=== PATIENT | female | born 1990 | race Caucasian/White ===

== ENCOUNTER 2016-11-21 17:01 | Emergency (ER) | payer OTHER ==
[2016-11-21 17:47] VITALS: RESP 18
[2016-11-21] MEDS ORDERED: SODIUM CHLORIDE 0.9% 1,000 ML IV STA (19:07)
--- NOTE | 2016-11-21 19:32 | ED ---
Female Urogenital HPI - General Chief complaint: Vaginal Bleeding Stated complaint: bleeding, 6 weeks preg Time Seen by Provider: 11/21/16 19:06 Source: patient, RN notes reviewed Mode of arrival: ambulatory Limitations: no limitations - History of Present Illness Initial comments: 26 yo female presents to the ER with cc of vaginal bleeding in . Patient states she is about 5 weeks . Patient states she noticed some light spotting today. Patient states she is a . Patient states she was confirmed by the health clinic. Patient states that she has not had any abdominal pain with this. Patient denies ultrasound in this . Patient denies any Lesions in her previous . Patient stated his light spotting. Patient states is brown in color no bright blood clot. Patient states she was concerned so she thought that she should be evaluated. Patient denies any recent fever, chills, shortness of breath, chest pain, back pain, abdominal pain, nausea vomiting, numbness or tingling, dysuria or hematuria, constipation or diarrhea, headaches or visual changes, or any other current symptoms. Last Menstrual Period: 10/13/16 - Related Data Home Medications Medication Instructions Recorded Confirmed Dtp-Itmd-Fkmto Acid 1 tab PO RT-DAILY 03/31/16 11/21/16 [-U Capsule] Allergies Allergy/AdvReac Type Severity Reaction Status Date / Time No Known Allergies Allergy Verified 11/21/16 17:44 Review of Systems ROS Statement: Those systems with pertinent positive or pertinent negative responses have been documented in the HPI. ROS Other: All systems not noted in ROS Statement are negative. Past Medical History Additional Past Medical History / Comment(s): Positive HSV Type 2 History of Any Multi-Drug Resistant Organisms: None Reported Additional Past Surgical History / Comment(s): Tubes in ears Past Anesthesia/Blood Transfusion Reactions: No Reported Reaction Past Psychological History: No Psychological Hx Reported Smoking Status: Current every day smoker Past Alcohol Use History: None Reported Past Drug Use History: None Reported - Past Family History Mother Family Medical History: Cancer General Exam Limitations: no limitations General appearance: alert, in no apparent distress Eye exam: Present: normal appearance, PERRL, EOMI. Absent: scleral icterus, conjunctival injection, periorbital swelling ENT exam: Present: normal exam, mucous membranes moist Neck exam: Present: normal inspection. Absent: tenderness, meningismus, lymphadenopathy Respiratory exam: Present: normal lung sounds bilaterally. Absent: respiratory distress, wheezes, rales, rhonchi, stridor Cardiovascular Exam: Present: regular rate, normal rhythm, normal heart sounds. Absent: systolic murmur, diastolic murmur, rubs, gallop, clicks GI/Abdominal exam: Present: soft, normal bowel sounds. Absent: distended, tenderness, guarding, rebound, rigid External exam: Present: normal external exam Speculum exam: Present: vaginal bleeding (Minimal, brown), other (Cervical os closed) By manual exam: Present: normal by manual exam Extremities exam: Present: normal inspection, full ROM, normal capillary refill. Absent: tenderness, pedal edema, joint swelling, calf tenderness Back exam: Present: normal inspection Neurological exam: Present: alert, oriented X3, CN II-XII intact. Absent: motor sensory deficit Psychiatric exam: Present: normal affect, normal mood Skin exam: Present: warm, dry, intact, normal color. Absent: rash Course Vital Signs 11/21/16 17:44 Temperature 97.9 F Pulse Rate 83 Respiratory 18 Rate Blood Pressure 117/73 O2 Sat by Pulse 97 Oximetry Medical Decision Making - Medical Decision Making 26-year-old female presents emergency department with a chief complaint of vaginal bleeding in . At this time patient's pelvic exam does show some light brown spotting. It isn't patient undergo an ultrasound as well as blood work. This time these were reviewed. This and there does appear to be a live IUP. This time we did discuss follow-up with PCP and HYPERBARIC NURSE and return parameters. Patient stated that she understood all cushions were answered. They will be discharged home. - Lab Data Result diagrams: 11/21/16 19:30 11/21/16 19:30 Lab Results 11/21/16 11/21/16 11/21/16 Range/Units 19:30 19:30 19:30 WBC 4.7 (3.8-10.6) k/uL RBC 4.91 (3.80-5.40) m/uL Hgb 13.9 (11.4-16.0) gm/dL Hct 43.0 (34.0-46.0) % MCV 87.5 (80.0-100.0) fL MCH 28.4 (25.0-35.0) pg MCHC 32.4 (31.0-37.0) g/dL RDW 12.0 (11.5-15.5) % Plt Count 125 L (150-450) k/uL Neutrophils % 50 % Lymphocytes % 32 % Monocytes % 9 % Eosinophils % 6 % Basophils % 1 % Neutrophils # 2.3 (1.3-7.7) k/uL Lymphocytes # 1.5 (1.0-4.8) k/uL Monocytes # 0.4 (0-1.0) k/uL Eosinophils # 0.3 (0-0.7) k/uL Basophils # 0.1 (0-0.2) k/uL Sodium 141 (137-145) mmol/L Potassium 4.0 (3.5-5.1) mmol/L Chloride 102 (98-107) mmol/L Carbon Dioxide 27 (22-30) mmol/L Anion Gap 12 mmol/L BUN 13 (7-17) mg/dL Creatinine 0.72 (0.52-1.04) mg/dL Est GFR (MDRD) Af Amer >60 (>60 ml/min/1.73 sqM) Est GFR (MDRD) Non-Af >60 (>60 ml/min/1.73 sqM) Glucose 80 (74-99) mg/dL Calcium 9.7 (8.4-10.2) mg/dL Total Bilirubin 0.5 (0.2-1.3) mg/dL AST 55 H (14-36) U/L ALT 124 H (9-52) U/L Alkaline Phosphatase 94 (38-126) U/L Total Protein 7.9 (6.3-8.2) g/dL Albumin 4.6 (3.5-5.0) g/dL Urine Color Urine Appearance (Clear) Urine pH (5.0-8.0) Ur Specific [place] (1.001-1.035) Urine Protein (Negative) Urine Glucose (UA) (Negative) Urine Ketones (Negative) Urine Blood (Negative) Urine Nitrate (Negative) Urine Bilirubin (Negative) Urine Urobilinogen (<2.0) mg/dL Ur Leukocyte Esterase (Negative) Urine RBC (0-5) /hpf Urine WBC (0-5) /hpf Ur Squamous Epith Cells (0-4) /hpf Urine Bacteria (None) /hpf Urine Mucus (None) /hpf Urine HCG, Qual (Not Detectd) Blood Type B Positive Blood Type Recheck No 11/21/16 11/21/16 Range/Units 19:30 19:30 WBC (3.8-10.6) k/uL RBC (3.80-5.40) m/uL Hgb (11.4-16.0) gm/dL Hct (34.0-46.0) % MCV (80.0-100.0) fL MCH (25.0-35.0) pg MCHC (31.0-37.0) g/dL RDW (11.5-15.5) % Plt Count (150-450) k/uL Neutrophils % % Lymphocytes % % Monocytes % % Eosinophils % % Basophils % % Neutrophils # (1.3-7.7) k/uL Lymphocytes # (1.0-4.8) k/uL Monocytes # (0-1.0) k/uL Eosinophils # (0-0.7) k/uL Basophils # (0-0.2) k/uL Sodium (137-145) mmol/L Potassium (3.5-5.1) mmol/L Chloride (98-107) mmol/L Carbon Dioxide (22-30) mmol/L Anion Gap mmol/L BUN (7-17) mg/dL Creatinine (0.52-1.04) mg/dL Est GFR (MDRD) Af Amer (>60 ml/min/1.73 sqM) Est GFR (MDRD) Non-Af (>60 ml/min/1.73 sqM) Glucose (74-99) mg/dL Calcium (8.4-10.2) mg/dL Total Bilirubin (0.2-1.3) mg/dL AST (14-36) U/L ALT (9-52) U/L Alkaline Phosphatase (38-126) U/L Total Protein (6.3-8.2) g/dL Albumin (3.5-5.0) g/dL Urine Color Yellow Urine Appearance Cloudy H (Clear) Urine pH 6.5 (5.0-8.0) Ur Specific [place] 1.019 (1.001-1.035) Urine Protein Negative (Negative) Urine Glucose (UA) Negative (Negative) Urine Ketones Negative (Negative) Urine Blood Small H (Negative) Urine Nitrate Negative (Negative) Urine Bilirubin Negative (Negative) Urine Urobilinogen <2.0 (<2.0) mg/dL Ur Leukocyte Esterase Negative (Negative) Urine RBC 1 (0-5) /hpf Urine WBC 2 (0-5) /hpf Ur Squamous Epith Cells 6 H (0-4) /hpf Urine Bacteria Rare H (None) /hpf Urine Mucus Few H (None) /hpf Urine HCG, Qual Detected (Not Detectd) Blood Type Blood Type Recheck - Radiology Data Radiology results: report reviewed, image reviewed Disposition Clinical Impression: Threatened miscarriage Disposition: TRANSFER TO PSYCH HOSP/UNIT Condition: Stable Instructions: Threatened Miscarriage (ED) Additional Instructions: Please use medication as discussed. Please follow up with family doctor if symptoms have not improved over the next two days. Please return to the emergency room if your symptoms increase or worsen or for any other concerns. Referrals: Beto Phelan MD [STAFF PHYSICIAN] - 1-2 days Time of Disposition: 20:23
[2016-11-21 19:46] LABS: Basophils # (A) 0.1 k/uL (0-0.2); Basophils % (A) 1 %; CHCM 34.4; Eosinophils # (A) 0.3 k/uL (0-0.7); Eosinophils % (A) 6 %; HDW 2.43; HGB 13.9 gm/dL (11.4-16.0); Luc % (Auto) 2; Lymphocytes # (A) 1.5 k/uL (1.0-4.8); Lymphocytes % (A) 32 %; MCH 28.4 pg (25.0-35.0); MCHC 32.4 g/dL (31.0-37.0); MCV 87.5 fL (80.0-100.0); Mean Platelet Volume 9.2; Monocytes # (A) 0.4 k/uL (0-1.0); Monocytes % (A) 9 %; Neutrophils # (A) 2.3 k/uL (1.3-7.7); Neutrophils % (A) 50 %; RBC 4.91 m/uL (3.80-5.40); WBC 4.7 k/uL (3.8-10.6); WBC (Perox) 4.74
[2016-11-21 19:48] LABS: Appearance,Urine Cloudy (Clear); Bacteria,Urine Rare /hpf; Bilirubin,Urine Negative (Negative); Glucose,Urine (UA) Negative (Negative); Ketones,Urine Negative (Negative); Leukocyte Esterase,Urine Negative (Negative); Mucus,Urine Few /hpf; Nitrite,Urine Negative (Negative); PH, Urine 6.5 (5.0-8.0); Particle Count 4589; Protein,Urine Negative (Negative); RBC,Urine 1 /hpf (0-5); Specific Gravity,Urine 1.019 (1.001-1.035); Squamous Epithelial Cell,Urine 6 /hpf (0-4); UA Billing (MACRO vs. MICRO) MICRO; Urobilinogen,Urine <2.0 mg/dL (<2.0); WBC,Urine 2 /hpf (0-5)
[2016-11-21 19:55] LABS: ALT 124 U/L (9-52); AST 55 U/L (14-36); Alkaline Phosphatase 94 U/L (38-126); Anion Gap 12 mmol/L; Blood Urea Nitrogen 13 mg/dL (7-17); Calcium 9.7 mg/dL (8.4-10.2); Carbon Dioxide 27 mmol/L (22-30); Chloride 102 mmol/L (98-107); Glucose 80 mg/dL (74-99); Non-African American GFR(MDRD) >60 (>60 ml/min/1.73 sqM); Sodium 141 mmol/L (137-145); Total Bilirubin 0.5 mg/dL (0.2-1.3); Total Protein 7.9 g/dL (6.3-8.2)
--- NOTE | 2016-11-21 20:22 | US ---
EXAMINATION TYPE: US OB <= 14 wk fetus DATE OF EXAM: 11/21/2016 8:05 PM COMPARISON: NONE CLINICAL HISTORY: bleeding- dark, no pain. EXAM PERFORMED: Transabdominal (TA) EXAM MEASUREMENTS: GESTATIONAL AGE / DATING Dates by LMP: ( 5 weeks/4 days) EDC: 07/20/2017 Dates by Current Scan: (5 weeks/5 days) EDC: 07/19/2017 MATERNAL ANATOMY Uterus: 7.1 x 6.5 x 4.0 cm Right Ovary: 3.9 x 1.7 x 2.0 cm Left Ovary: 4.3 x 3.5 x 4.0 cm Post CDS / Adnexa: no free fluid Presence of cyst: Left ovary= cyst with debris = 3.7 x 3.5 x 3.0 cm GESTATION / SURVEY CRL: 0.2 cm (5 weeks/5 days) MSD: not measured Yolk Sac (normal less than 6mm): 2.1 mm Heart Rate: 104 bpm Rhythm: Normal, low IUP: Viable IUP Date of LMP: 10/13/2016, Beta HcG (if available): not available IMPRESSION: Live IUP seen measuring 5 weeks 5 days. Low heart rate, could be due to early gestatio nal age. Left ovarian cyst.
[2016-11-21 20:26] LABS: HCG,Quantitative Serum 25475.7 mIU/mL
[2016-11-21 20:32] VITALS: BP 122/65; PULSE 75; TEMP 98
== END 2016-11-21 20:33 ==
LOC: EC 17:01
DX: O20.0 Threatened abortion (principal); O99.331 Smoking (tobacco) complicating pregnancy, first trimester; F17.200 Nicotine dependence, unspecified, uncomplicated; Z3A.01 Less than 8 weeks gestation of pregnancy
CPT/HCPCS: 36415; 76801; 80053; 81001; 81025; 84702; 85025; 86900; 86901; 87086; 99284

== ENCOUNTER 2016-12-20 08:33 | Emergency (ER) | payer OTHER ==
[2016-12-20 08:45] VITALS: RESP 16
[2016-12-20] MEDS ORDERED: SODIUM CHLORIDE 0.9% 1,000 ML IV STA (09:09)
[2016-12-20 09:38] LABS: Appearance,Urine Clear (Clear); Bacteria,Urine Rare /hpf; Bilirubin,Urine Negative (Negative); Glucose,Urine (UA) Negative (Negative); Ketones,Urine Negative (Negative); Leukocyte Esterase,Urine Negative (Negative); Mucus,Urine Occasional /hpf; Nitrite,Urine Negative (Negative); Particle Count 3068; Protein,Urine Negative (Negative); RBC,Urine 20 /hpf (0-5); Specific Gravity,Urine 1.016 (1.001-1.035); Squamous Epithelial Cell,Urine 3 /hpf (0-4); UA Billing (MACRO vs. MICRO) MICRO; Urobilinogen,Urine <2.0 mg/dL (<2.0); WBC,Urine 1 /hpf (0-5)
[2016-12-20 09:44] LABS: Basophils % (A) 1 %; CH 30.5; CHCM 34.9; Eosinophils # (A) 0.3 k/uL (0-0.7); Eosinophils % (A) 5 %; HCT 36.9 % (34.0-46.0); HDW 2.41; HGB 12.7 gm/dL (11.4-16.0); Luc # (Auto) 0.05; Luc % (Auto) 1; Lymphocytes % (A) 15 %; MCH 30.2 pg (25.0-35.0); MCHC 34.4 g/dL (31.0-37.0); MCV 87.9 fL (80.0-100.0); Mean Platelet Volume 9.1; Monocytes # (A) 0.3 k/uL (0-1.0); Monocytes % (A) 5 %; Neutrophils % (A) 74 %; RDW 12.5 % (11.5-15.5); WBC 6.7 k/uL (3.8-10.6); WBC (Perox) 6.74
--- NOTE | 2016-12-20 09:48 | ED ---
General Adult HPI - General Chief complaint: Abdominal Pain Stated complaint: side pain, 9 wks preg Time Seen by Provider: 12/20/16 09:06 Source: patient, RN notes reviewed Mode of arrival: ambulatory Limitations: no limitations - History of Present Illness Initial comments: Patient we [id number] female who is approximately 9 weeks , who presents emergency room today with chief complaint of right-sided abdominal pain. Admits the pain started today. Does admit that she had some bleeding yesterday. Denies any vaginal bleeding today. Denies any discharge. States this is second . States she has not had an appointment with her OB yet. Patient admits to nausea vomiting this morning. Patient denies any other complaints or symptoms. Patient denies any recent fever, chills, shortness of breath, chest pain, numbness or tingling, dysuria or hematuria, constipation or diarrhea, headaches or visual changes, or any other complaints. - Related Data Home Medications Medication Instructions Recorded Confirmed Hth-Ewld-Dhmek Acid 1 cap PO HS 03/31/16 12/20/16 [-U Capsule] Allergies Allergy/AdvReac Type Severity Reaction Status Date / Time No Known Allergies Allergy Verified 12/20/16 08:50 Review of Systems ROS Statement: Those systems with pertinent positive or pertinent negative responses have been documented in the HPI. ROS Other: All systems not noted in ROS Statement are negative. Past Medical History Additional Past Medical History / Comment(s): Positive HSV Type 2 History of Any Multi-Drug Resistant Organisms: None Reported Additional Past Surgical History / Comment(s): Tubes in ears Past Anesthesia/Blood Transfusion Reactions: No Reported Reaction Past Psychological History: No Psychological Hx Reported Smoking Status: Former smoker Past Alcohol Use History: None Reported Past Drug Use History: None Reported - Past Family History Mother Family Medical History: Cancer General Exam - General Exam Comments Initial Comments: General: The patient is awake and alert, in no distress, and does not appear acutely ill. Eye: Pupils are equal, round and reactive to light, extra-ocular movements are intact. No nystagmus. There is normal conjunctiva bilaterally. No signs of icterus. Ears, nose, mouth and throat: There are moist mucous membranes and no oral lesions. Neck: The neck is supple, there is no tenderness or JVD. Cardiovascular: There is a regular rate and rhythm. No murmur, rub or gallop is appreciated. Respiratory: Lungs are clear to auscultation, respirations are non-labored, breath sounds are equal. No wheezes, stridor, rales, or rhonchi. Gastrointestinal: Soft, non-distended, non-tender abdomen without masses or organomegaly noted. There is no rebound or guarding present. No CVA tenderness. Bowel sounds are unremarkable. Musculoskeletal: Normal ROM, no tenderness. Strength 5/5. Sensation intact. Pulses equal bilaterally 2+. Neurological: A&O x 3. CN II-XII intact, There are no obvious motor or sensory deficits. Coordination appears grossly intact. Speech is normal. Skin: Skin is warm and dry and no rashes or lesions are noted. Psychiatric: Cooperative, appropriate mood & affect, normal judgment. Limitations: no limitations Course Vital Signs 12/20/16 12/20/16 08:43 10:36 Temperature 97.9 F 98.0 F Pulse Rate 92 78 Respiratory 16 16 Rate Blood Pressure 114/62 115/59 O2 Sat by Pulse 98 100 Oximetry Medical Decision Making - Medical Decision Making Patient's ultrasound reviewed and shows seen IUP measuring 10 weeks 3 days. Heart rate 167 bpm. Evidence for a cystic structure in the left ovary. Probable corpus luteum. Small subchorionic bleed the left of gestational sac. Beta hCG still pending at this time. Patient is B+. Patient's remaining labs unremarkable. Patient will be discharged home advised follow-up the [facility] [employer] over the next 2 days. - Lab Data Result diagrams: 12/20/16 09:30 12/20/16 09:30 Lab Results 12/20/16 12/20/16 12/20/16 Range/Units 09:00 09:30 09:30 WBC 6.7 (3.8-10.6) k/uL RBC 4.20 (3.80-5.40) m/uL Hgb 12.7 (11.4-16.0) gm/dL Hct 36.9 (34.0-46.0) % MCV 87.9 (80.0-100.0) fL MCH 30.2 (25.0-35.0) pg MCHC 34.4 (31.0-37.0) g/dL RDW 12.5 (11.5-15.5) % Plt Count 128 L (150-450) k/uL Neutrophils % 74 % Lymphocytes % 15 % Monocytes % 5 % Eosinophils % 5 % Basophils % 1 % Neutrophils # 5.0 (1.3-7.7) k/uL Lymphocytes # 1.0 (1.0-4.8) k/uL Monocytes # 0.3 (0-1.0) k/uL Eosinophils # 0.3 (0-0.7) k/uL Basophils # 0.0 (0-0.2) k/uL Sodium (137-145) mmol/L Potassium (3.5-5.1) mmol/L Chloride (98-107) mmol/L Carbon Dioxide (22-30) mmol/L Anion Gap mmol/L BUN (7-17) mg/dL Creatinine (0.52-1.04) mg/dL Est GFR (MDRD) Af Amer (>60 ml/min/1.73 sqM) Est GFR (MDRD) Non-Af (>60 ml/min/1.73 sqM) Glucose (74-99) mg/dL Calcium (8.4-10.2) mg/dL Total Bilirubin (0.2-1.3) mg/dL AST (14-36) U/L ALT (9-52) U/L Alkaline Phosphatase (38-126) U/L Total Protein (6.3-8.2) g/dL Albumin (3.5-5.0) g/dL Urine Color Yellow Urine Appearance Clear (Clear) Urine pH 6.0 (5.0-8.0) Ur Specific [place] 1.016 (1.001-1.035) Urine Protein Negative (Negative) Urine Glucose (UA) Negative (Negative) Urine Ketones Negative (Negative) Urine Blood Small H (Negative) Urine Nitrate Negative (Negative) Urine Bilirubin Negative (Negative) Urine Urobilinogen <2.0 (<2.0) mg/dL Ur Leukocyte Esterase Negative (Negative) Urine RBC 20 H (0-5) /hpf Urine WBC 1 (0-5) /hpf Ur Squamous Epith Cells 3 (0-4) /hpf Urine Bacteria Rare H (None) /hpf Hyaline Casts 1 (0-2) /lpf Urine Mucus Occasional H (None) /hpf Blood Type B Positive Blood Type Recheck No 12/20/16 Range/Units 09:30 WBC (3.8-10.6) k/uL RBC (3.80-5.40) m/uL Hgb (11.4-16.0) gm/dL Hct (34.0-46.0) % MCV (80.0-100.0) fL MCH (25.0-35.0) pg MCHC (31.0-37.0) g/dL RDW (11.5-15.5) % Plt Count (150-450) k/uL Neutrophils % % Lymphocytes % % Monocytes % % Eosinophils % % Basophils % % Neutrophils # (1.3-7.7) k/uL Lymphocytes # (1.0-4.8) k/uL Monocytes # (0-1.0) k/uL Eosinophils # (0-0.7) k/uL Basophils # (0-0.2) k/uL Sodium 140 (137-145) mmol/L Potassium 4.0 (3.5-5.1) mmol/L Chloride 104 (98-107) mmol/L Carbon Dioxide 26 (22-30) mmol/L Anion Gap 10 mmol/L BUN 9 (7-17) mg/dL Creatinine 0.53 (0.52-1.04) mg/dL Est GFR (MDRD) Af Amer >60 (>60 ml/min/1.73 sqM) Est GFR (MDRD) Non-Af >60 (>60 ml/min/1.73 sqM) Glucose 79 (74-99) mg/dL Calcium 9.2 (8.4-10.2) mg/dL Total Bilirubin 0.6 (0.2-1.3) mg/dL AST 21 (14-36) U/L ALT 56 H (9-52) U/L Alkaline Phosphatase 67 (38-126) U/L Total Protein 7.3 (6.3-8.2) g/dL Albumin 4.1 (3.5-5.0) g/dL Urine Color Urine Appearance (Clear) Urine pH (5.0-8.0) Ur Specific [place] (1.001-1.035) Urine Protein (Negative) Urine Glucose (UA) (Negative) Urine Ketones (Negative) Urine Blood (Negative) Urine Nitrate (Negative) Urine Bilirubin (Negative) Urine Urobilinogen (<2.0) mg/dL Ur Leukocyte Esterase (Negative) Urine RBC (0-5) /hpf Urine WBC (0-5) /hpf Ur Squamous Epith Cells (0-4) /hpf Urine Bacteria (None) /hpf Hyaline Casts (0-2) /lpf Urine Mucus (None) /hpf Blood Type Blood Type Recheck Disposition Clinical Impression: Threatened Disposition: HOME SELF-CARE Condition: Good Instructions: Threatened Miscarriage (ED) Additional Instructions: Please use medication as discussed. Please follow-up with family doctor in the next 2 days of symptoms have not improved. Please return to emergency room if the symptoms increase or worsen or for any other concerns. Referrals: None,Stated [Primary Care Provider] - 1-2 days Time of Disposition: 11:09
[2016-12-20 09:54] LABS: ALT 56 U/L (9-52); AST 21 U/L (14-36); Alkaline Phosphatase 67 U/L (38-126); Anion Gap 10 mmol/L; Blood Urea Nitrogen 9 mg/dL (7-17); Calcium 9.2 mg/dL (8.4-10.2); Carbon Dioxide 26 mmol/L (22-30); Chloride 104 mmol/L (98-107); Glucose 79 mg/dL (74-99); Non-African American GFR(MDRD) >60 (>60 ml/min/1.73 sqM); Sodium 140 mmol/L (137-145); Total Bilirubin 0.6 mg/dL (0.2-1.3); Total Protein 7.3 g/dL (6.3-8.2)
[2016-12-20 10:38] VITALS: BP 115/59; PULSE 78; TEMP 98
[2016-12-20 11:09] LABS: HCG,Quantitative Serum 88399.7 mIU/mL
--- NOTE | 2016-12-20 11:09 | US ---
EXAMINATION TYPE: US OB <= 14 wk fetus DATE OF EXAM: 12/20/2016 10:29 AM COMPARISON: NONE CLINICAL HISTORY: Pain. Right pelvic pain, spotting yesterday EXAM PERFORMED: Transabdominal (TA) EXAM MEASUREMENTS: GESTATIONAL AGE / DATING Physician Established: not established Dates by LMP: (9 weeks/5 days) EDC: 07/20/17 Dates by First Scan: (9 weeks/6 days) EDC: 07/19/17 Dates by Current Scan for: (10 weeks/3 days) EDC: 07/15/17 MATERNAL ANATOMY Uterus: 9.8 x 6.3 x 8.8cm Right Ovary: 3.0 x 1.4 x 1.6cm Left Ovary: 4.5 x 4.0 x 6.1cm Post CDS / Adnexa: appears wnl Presence of free fluid: no Presence of corpus luteal cyst: cystic area left ovary = 3.6 x 3.3 x 3.7cm Presence of subchorionic bleed: yes, left of gestational sac = 1.4cm GESTATION / SURVEY CRL: 3.5cm (10 weeks/3 days) Yolk Sac (normal less than 6mm): 0.3cm Heart Rate: 167 bpm Rhythm: Normal IUP: Viable IUP Nuchal Translucency 10-14wks (normal less than 3mm): 0.1cm Date of LMP: 10/13/16 Beta HcG (if available): unavailable FINDINGS: Single viable IUP 10wks/3days with DIEGO of 07/15/17. Cystic area left ovary, probable corpus luteum cyst. Small subchorionic bleed left of gestational sac IMPRESSION: Single viable IUP 10wks/3days with DIEGO of 07/15/17. There is a small subchorionic hemorrhage.
== END 2016-12-20 11:30 | disposition home or self-care (01) ==
LOC: EC 08:33
DX: O20.0 Threatened abortion (principal); Z3A.10 10 weeks gestation of pregnancy; Z87.891 Personal history of nicotine dependence
CPT/HCPCS: 36415; 76801; 76813; 80053; 81001; 84702; 85025; 86900; 86901; 87086; 96360; 99284

== ENCOUNTER 2017-01-10 11:52 | Emergency (ER) | payer OTHER ==
--- NOTE | 2017-01-10 13:30 | ED ---
ENT HPI - General Chief complaint: ENT Stated complaint: sinus and ear pain Time Seen by Provider: 01/10/17 12:37 Source: patient Mode of arrival: ambulatory Limitations: no limitations - History of Present Illness Initial comments: She is , complaining about facial pain, sore throat, earache she feels feverish though in the ER she is afebrile also complaining about some discomfort in the gums and the teeth as well she feels she has required quite severe sinus infection. Denies any headaches no neck stiffness no chest pain no abdominal pain no frequency urgency dysuria - Related Data Home Medications Medication Instructions Recorded Confirmed Jek-Wzcj-Klzkp Acid 1 cap PO HS 03/31/16 12/20/16 [-U Capsule] Pseudoephedrine [Sudafed] 30 mg PO Q4H 01/10/17 01/10/17 Previous Rx's Medication Instructions Recorded Amoxicillin 500 mg PO Q8H #30 capsule 01/10/17 Allergies Allergy/AdvReac Type Severity Reaction Status Date / Time No Known Allergies Allergy Verified 12/20/16 08:50 Review of Systems ROS Statement: Those systems with pertinent positive or pertinent negative responses have been documented in the HPI. ROS Other: All systems not noted in ROS Statement are negative. Past Medical History Additional Past Medical History / Comment(s): Positive HSV Type 2 History of Any Multi-Drug Resistant Organisms: None Reported Additional Past Surgical History / Comment(s): Tubes in ears Past Anesthesia/Blood Transfusion Reactions: No Reported Reaction Past Psychological History: No Psychological Hx Reported Smoking Status: Former smoker Past Alcohol Use History: None Reported Past Drug Use History: None Reported - Past Family History Mother Family Medical History: Cancer General Exam - General Exam Comments Initial Comments: General: The patient is awake and alert, in no distress, and does not appear acutely ill. Skin: Skin is warm and dry and no rashes or lesions are noted. Eye: Pupils are equal, round and reactive to light, extra-ocular movements are intact; there is normal conjunctiva bilaterally. Ears, nose, mouth and throat: Very tender to palpate over maxillary sinuses and ethmoid sinuses, oropharynx is unremarkable, no neck stiffness at all him a both tympanic membranes are mildly erythematous and some erythema noticed in the ear canals as well Neck: The neck is supple, there is no tenderness Cardiovascular: There is a regular rate and rhythm. No murmur, rub or gallop is appreciated. Respiratory: To auscultation bilateral, no wheezing no rhonchi no distress respiratory buck noticed Gastrointestinal: Soft, non-distended, non-tender abdomen without masses or organomegaly noted. There is no rebound or guarding present. Bowel sounds are unremarkable. Back: There is no tenderness to palpation in the midline. There is no obvious deformity. Musculoskeletal: Normal ROM, no tenderness, There is no pedal edema. There is no calf tenderness or swelling. No cords were appreciated. Neurological: CN II-XII intact, Cranial nerves III through XII are intact. There are no obvious motor or sensory deficits. Coordination appears grossly intact. Speech is normal. Psychiatric: Cooperative, appropriate mood & affect, normal judgment. Limitations: no limitations Course Vital Signs 01/10/17 12:08 Temperature 98.5 F Pulse Rate 95 Respiratory 20 Rate Blood Pressure 113/66 O2 Sat by Pulse 99 Oximetry Disposition Clinical Impression: Sinusitis, Otitis media Disposition: HOME SELF-CARE Instructions: Earache (ED) Additional Instructions: He does not have a family doctor she was advised to come back to ER if symptoms get worse, she agrees with the Prescriptions: Amoxicillin 500 mg PO Q8H #30 capsule
[2017-01-10 14:02] VITALS: BP 119/70; PULSE 80; RESP 18; TEMP 98
== END 2017-01-10 14:02 | disposition home or self-care (01) ==
LOC: EC 11:52
DX: H66.90 Otitis media, unspecified, unspecified ear (principal); J32.2 Chronic ethmoidal sinusitis; J32.0 Chronic maxillary sinusitis; Z87.891 Personal history of nicotine dependence; Z79.899 Other long term (current) drug therapy
CPT/HCPCS: 99282

== ENCOUNTER 2017-07-09 03:29 | Outpatient (CLI) | payer OTHER ==
[2017-07-09 05:02] VITALS: BP 125/79; PULSE 81; RESP 16; TEMP 96.8
--- NOTE | 2017-08-31 11:45 | P.MSEPDOC ---
Presenting Problems - Arrival Data Date of Arrival on Unit: 07/09/17 Time of Arrival on Unit: 03:30 Mode of Transport: Wheelchair - Complaint OB-Reason for Admission/Chief Complaint: Possible Onset of Labor Comment: Contractions beginning about 0100 this morning Medical History - Information : 2 Para: 1 Term: 0 : 1 Abortions: Spontaneous or Elective: 0 Number of Living Children: 1 - Gestational Age Gestational Age by DIEGO (wks/days): 38 Weeks and 3 Days - History Complications: Smoker Sexually Transmitted Diseases: HSV Review of Systems - Review of Systems Constitutional: No problems Breast: No problems ENT: No problems Cardiovascular: No problems Respiratory: No problems Gastrointestinal: No problems Genitourinary: No problems Musculoskeletal: No problems Neurological: No problems Skin: No problems Vital Signs - Temperature Temperature: 96.8 F Temperature Source: Temporal Artery Scan - Pulse Pulse Oximetery Pulse Rate: 81 Pulse Assessment Method: Pulse Oximetry - Respirations Respiratory Rate: 16 Oxygen Delivery Method: Room Air O2 Sat by Pulse Oximetry: 99 - Blood Pressure Right Arm Blood Pressure: 125/79 Blood Pressure Mean: 94 Blood Pressure Source: Automatic Cuff Medical Screen Scoring (Pre) - Cervical Exam Dilation: 1-3 cm = 1 Effacement: More than 50% = 2 Membranes: Intact - Uterine Contractions Frequency: > or = 36 weeks =2 Duration: > 40 seconds = 2 Intensity: N/A - Maternal Vital Signs Maternal Temperature: N/A Maternal Blood Pressure: N/A Signs of Preeclampsia: N/A Maternal Respirations: N/A - Maternal Trauma Maternal Trauma: N/A - Assessment Baseline FHR: 135 Heart Rate - NICHD Category: Category I (Normal) = 0 NST: Reactive Position: N/A Station: N/A - Total Score Total Score (Pre): 7 - Level of Risk Level of Risk: Medium (6-9) Physician Notification (Pre) - Physician Notified Physician Notified Date: 07/09/17 Physician Notified Time: 04:43 Physician/Practitioner Notifed:: Su Spoke With: Su New Order Received: Yes (discharge orders) - Notification Comment Comment: Patient following up with primary OB, Dr. Zepeda, at [facility]. Disposition - Disposition OB Disposition: Discharge to home Discharge Date: 07/09/17 Discharge Time: 04:50 I agree with the RN Medical Screening Exam: Yes Risk & Benefit of care provided described in d/c instruction: Yes Diagnosis: FALSE LABOR AT OR AFTER 37 COMPLETED WEEKS OF GESTATION
== END 2017-07-09 04:50 | disposition home or self-care (01) ==
LOC: FBPOP 03:29
PROVIDERS: ATTEND Obstetrics & Gynecology Obstetrics
DX: O47.1 False labor at or after 37 completed weeks of gestation (principal); Z3A.38 38 weeks gestation of pregnancy
CPT/HCPCS: 59025; G0463; 99213

== ENCOUNTER 2018-08-16 18:21 | Emergency (ER) | payer OTHER ==
[2018-08-16 18:50] VITALS: RESP 18
[2018-08-16] MEDS ORDERED: KETOROLAC 30 MG/ML 1 ML VIAL IVP STA (19:23)
[2018-08-16] MEDS ORDERED: SODIUM CHLORIDE 0.9% 1,000 ML IV ONE (19:23)
[2018-08-16] MEDS ORDERED: ONDANSETRON 4 MG/2 ML VIAL IVP STA (19:27)
--- NOTE | 2018-08-16 19:28 | ED ---
Female Urogenital HPI - General Chief complaint: Urogenital Stated complaint: UTI Time Seen by Provider: 08/16/18 19:00 Source: patient Mode of arrival: ambulatory Limitations: no limitations - History of Present Illness Initial comments: Patient is a 28-year-old female presenting for dysuria. On Saturday, she states that she was having some anal with urination as well as bilateral lower back pain and went to urgent care and diagnosed with urinary tract infection. She was started on Bactrim and Pyridium and states that the symptoms continue to worsen. She admits to subjective fevers and chills as well as 3 episodes of nausea and vomiting and worsening back pain. She denies any dysuria, chest pain , shortness of breath. - Related Data Previous Rx's Medication Instructions Recorded HYDROcodone/APAP 5-325MG [[place] 1 tab PO Q6HR PRN #12 tab 08/16/18 5-325] Allergies Allergy/AdvReac Type Severity Reaction Status Date / Time No Known Allergies Allergy Verified 08/16/18 18:50 Review of Systems ROS Statement: Those systems with pertinent positive or pertinent negative responses have been documented in the HPI. Constitutional: Negative for chills, fatigue and fever. HENT: Negative for congestion. Respiratory: Negative for chest tightness, shortness of breath and wheezing. Negative for cough Cardiovascular: Negative for chest pain and palpitations. Gastrointestinal: Negative for abdominal pain. Negative for abdominal distention , diarrhea, positive for bilateral flank pain and nausea and vomiting. Genitourinary: Positive for dysuria. Musculoskeletal: Negative for back pain, neck pain and neck stiffness. Skin: Negative for color change. Neurological: Negative for dizziness, speech difficulty, weakness and light- headedness. Psychiatric/Behavioral: Negative for agitation and confusion. Negative for anxiety ROS Other: All systems not noted in ROS Statement are negative. Past Medical History Additional Past Medical History / Comment(s): Positive HSV Type 2 History of Any Multi-Drug Resistant Organisms: None Reported Additional Past Surgical History / Comment(s): Tubes in ears Past Anesthesia/Blood Transfusion Reactions: No Reported Reaction Past Psychological History: No Psychological Hx Reported Smoking Status: Current every day smoker - Past Family History Mother Family Medical History: Cancer General Exam - General Exam Comments Initial Comments: Constitutional: Pt is oriented to person, place, and time. Pt appears well- developed and well-nourished. No distress. HENT: Head: Normocephalic and atraumatic. Eyes: EOM are normal. Neck: Normal range of motion. Neck supple. Cardiovascular: Tachycardia present, regular rhythm, S1 normal, S2 normal and normal heart sounds. Exam reveals no gallop and no friction rub. No murmur heard. Pulmonary/Chest: Effort normal and breath sounds normal. No tachypnea and no bradypnea. No respiratory distress. No wheezes or rales noted. Abdominal: Soft. Bowel sounds are normal. Pt exhibits no shifting dullness, no distension, no pulsatile liver, no fluid wave, no abdominal bruit and no ascites. There is no tenderness. There is no rigidity, no rebound, no guarding, no tenderness at McBurney's point and negative Harrison's sign. Musculoskeletal: Normal range of motion. Neurological: Pt is alert and oriented to person, place, and time. No cranial nerve deficit. Skin: Skin is warm and dry. No rash noted. Pt is not diaphoretic. No erythema. No pallor. Psychiatric: Pt has a normal mood and affect. Pt behavior is normal. Thought content normal. Limitations: no limitations Course Vital Signs 08/16/18 08/16/18 18:47 22:50 Temperature 97.6 F 98.0 F Pulse Rate 107 H 91 Respiratory 18 18 Rate Blood Pressure 113/70 116/59 O2 Sat by Pulse 97 98 Oximetry Medical Decision Making - Medical Decision Making Laboratory studies showed that there was no significant leukocytosis and a letter lites were relatively within normal limits. AST and ALT were mildly elevated and total bilirubin was measured at 1.7. Because of this, abdominal ultrasound was performed to evaluate the liver and gallbladder structure as well as evaluate the kidneys for what appeared to be a urinary tract infection based on urinalysis. Ultrasound showed splenomegaly with no overt gallbladder disease identified. There is also no renal abnormalities found on ultrasound. Patient was given analgesics and stated that the pain significantly improved. Patient was also given 1 g Rocephin and advised to continue her outpatient Bactrim. His explained that the etiology of the pinna megaly was unclear but that she should follow up with PCP in next 1-2 days and avoid strenuous physical contact contact. Patient was agreeable plan. - Lab Data Result diagrams: 08/16/18 19:40 08/16/18 19:40 Lab Results 08/16/18 08/16/18 08/16/18 Range/Units 19:40 19:40 19:40 WBC 11.4 H (3.8-10.6) k/uL RBC 5.02 (3.80-5.40) m/uL Hgb 14.7 (11.4-16.0) gm/dL Hct 44.7 (34.0-46.0) % MCV 89.2 (80.0-100.0) fL MCH 29.2 (25.0-35.0) pg MCHC 32.8 (31.0-37.0) g/dL RDW 12.3 (11.5-15.5) % Plt Count 143 L (150-450) k/uL Neutrophils % 89 % Lymphocytes % 5 % Monocytes % 5 % Eosinophils % 1 % Basophils % 0 % Neutrophils # 10.1 H (1.3-7.7) k/uL Lymphocytes # 0.5 L (1.0-4.8) k/uL Monocytes # 0.5 (0-1.0) k/uL Eosinophils # 0.1 (0-0.7) k/uL Basophils # 0.0 (0-0.2) k/uL Sodium 138 (137-145) mmol/L Potassium 4.1 (3.5-5.1) mmol/L Chloride 102 (98-107) mmol/L Carbon Dioxide 22 (22-30) mmol/L Anion Gap 14 mmol/L BUN 16 (7-17) mg/dL Creatinine 0.79 (0.52-1.04) mg/dL Est GFR (CKD-EPI)AfAm >90 (>60 ml/min/1.73 sqM) Est GFR (CKD-EPI)NonAf >90 (>60 ml/min/1.73 sqM) Glucose 88 (74-99) mg/dL Calcium 9.4 (8.4-10.2) mg/dL Total Bilirubin 1.7 H (0.2-1.3) mg/dL AST 44 H (14-36) U/L ALT 59 H (9-52) U/L Alkaline Phosphatase 119 (38-126) U/L Total Protein 8.1 (6.3-8.2) g/dL Albumin 4.5 (3.5-5.0) g/dL Urine Color Urine Appearance (Clear) Urine pH (5.0-8.0) Ur Specific [place] (1.001-1.035) Urine Protein (Negative) Urine Glucose (UA) (Negative) Urine Ketones (Negative) Urine Blood (Negative) Urine Nitrite (Negative) Urine Bilirubin (Negative) Urine Urobilinogen (<2.0) mg/dL Ur Leukocyte Esterase (Negative) Urine RBC (0-5) /hpf Urine WBC (0-5) /hpf Urine WBC Clumps (None) /hpf Urine Bacteria (None) /hpf Urine Mucus (None) /hpf Urine HCG, Qual Not Detected (Not Detectd) Heterophile Antibody (Negative) 08/16/18 08/16/18 Range/Units 19:40 19:40 WBC (3.8-10.6) k/uL RBC (3.80-5.40) m/uL Hgb (11.4-16.0) gm/dL Hct (34.0-46.0) % MCV (80.0-100.0) fL MCH (25.0-35.0) pg MCHC (31.0-37.0) g/dL RDW (11.5-15.5) % Plt Count (150-450) k/uL Neutrophils % % Lymphocytes % % Monocytes % % Eosinophils % % Basophils % % Neutrophils # (1.3-7.7) k/uL Lymphocytes # (1.0-4.8) k/uL Monocytes # (0-1.0) k/uL Eosinophils # (0-0.7) k/uL Basophils # (0-0.2) k/uL Sodium (137-145) mmol/L Potassium (3.5-5.1) mmol/L Chloride (98-107) mmol/L Carbon Dioxide (22-30) mmol/L Anion Gap mmol/L BUN (7-17) mg/dL Creatinine (0.52-1.04) mg/dL Est GFR (CKD-EPI)AfAm (>60 ml/min/1.73 sqM) Est GFR (CKD-EPI)NonAf (>60 ml/min/1.73 sqM) Glucose (74-99) mg/dL Calcium (8.4-10.2) mg/dL Total Bilirubin (0.2-1.3) mg/dL AST (14-36) U/L ALT (9-52) U/L Alkaline Phosphatase (38-126) U/L Total Protein (6.3-8.2) g/dL Albumin (3.5-5.0) g/dL Urine Color Dark Yellow Urine Appearance Turbid H (Clear) Urine pH 6.0 (5.0-8.0) Ur Specific [place] 1.017 (1.001-1.035) Urine Protein 2+ H (Negative) Urine Glucose (UA) Negative (Negative) Urine Ketones 1+ H (Negative) Urine Blood Moderate H (Negative) Urine Nitrite Positive H (Negative) Urine Bilirubin Negative (Negative) Urine Urobilinogen <2.0 (<2.0) mg/dL Ur Leukocyte Esterase Large H (Negative) Urine RBC 17 H (0-5) /hpf Urine WBC >182 H (0-5) /hpf Urine WBC Clumps Few H (None) /hpf Urine Bacteria Many H (None) /hpf Urine Mucus Many H (None) /hpf Urine HCG, Qual (Not Detectd) Heterophile Antibody Negative (Negative) Disposition Clinical Impression: Urinary tract infection, Splenomegaly Disposition: HOME SELF-CARE Condition: Good Instructions: Urinary Tract Infection in Women (ED) Prescriptions: HYDROcodone/APAP 5-325MG [[place] 5-325] 1 tab PO Q6HR PRN #12 tab PRN Reason: Pain Is patient prescribed a controlled substance at d/c from ED?: Yes Referrals: None,Stated [Primary Care Provider] - 1-2 days Time of Disposition: 22:42
[2018-08-16 19:56] LABS: Basophils % (A) 0 %; Eosinophils # (A) 0.1 k/uL (0-0.7); Eosinophils % (A) 1 %; HCT 44.7 % (34.0-46.0); HGB 14.7 gm/dL (11.4-16.0); Lymphocytes # (A) 0.5 k/uL (1.0-4.8); Lymphocytes % (A) 5 %; MCH 29.2 pg (25.0-35.0); MCHC 32.8 g/dL (31.0-37.0); MCV 89.2 fL (80.0-100.0); Mean Platelet Volume 8.5; Monocytes # (A) 0.5 k/uL (0-1.0); Monocytes % (A) 5 %; Neutrophils # (A) 10.1 k/uL (1.3-7.7); Neutrophils % (A) 89 %; Platelet Count 143 k/uL (150-450); RBC 5.02 m/uL (3.80-5.40); RDW 12.3 % (11.5-15.5); WBC 11.4 k/uL (3.8-10.6)
[2018-08-16 19:58] LABS: Appearance,Urine Turbid (Clear); Bacteria,Urine Many /hpf; Bilirubin,Urine Negative (Negative); Blood,Urine Moderate (Negative); Color,Urine Dark Yellow; Glucose,Urine (UA) Negative (Negative); Ketones,Urine 1+ (Negative); Leukocyte Esterase,Urine Large (Negative); Mucus,Urine Many /hpf; Nitrite,Urine Positive (Negative); Protein,Urine 2+ (Negative); RBC,Urine 17 /hpf (0-5); Specific Gravity,Urine 1.017 (1.001-1.035); Urobilinogen,Urine <2.0 mg/dL (<2.0)
[2018-08-16 20:03] LABS: ALT 59 U/L (9-52); AST 44 U/L (14-36); Albumin 4.5 g/dL (3.5-5.0); Alkaline Phosphatase 119 U/L (38-126); Anion Gap 14 mmol/L; Blood Urea Nitrogen 16 mg/dL (7-17); Calcium 9.4 mg/dL (8.4-10.2); Carbon Dioxide 22 mmol/L (22-30); Chloride 102 mmol/L (98-107); Glucose 88 mg/dL (74-99); Potassium 4.1 mmol/L (3.5-5.1); Sodium 138 mmol/L (137-145); Total Bilirubin 1.7 mg/dL (0.2-1.3); Total Protein 8.1 g/dL (6.3-8.2)
[2018-08-16] MEDS ORDERED: HYDROcodone/APAP 7.5-325MG 1 EACH TAB PO ONE (20:24)
--- NOTE | 2018-08-16 21:49 | US ---
EXAMINATION TYPE: US abdomen complete DATE OF EXAM: 08/16/2018 COMPARISON: NONE CLINICAL HISTORY: Pain. EXAM MEASUREMENTS: Liver Length: 15.6 cm Gallbladder Wall: 0.3 cm CBD: 0.3 cm Spleen: 15.5 cm Right Kidney: 13.7 x 4.6 x 5.9 cm Left Kidney: 13.7 x 5.1 x 5.7 cm [id number] due to pt breathing. Pancreas: wnl Liver: wnl Gallbladder: wnl Evidence for sonographic Harrison's sign: No CBD: wnl Spleen: Enlarged Right Kidney: Measures slightly large, Left Kidney: Measures slightly large Upper IVC: wnl Abd Aorta: wnl The liver is homogenous. The intrahepatic portion of the IVC and visualized abdominal aorta are with in normal limits. There is no evidence of cholelithiasis. Common bile duct is unremarkable. The vi sualized portions of the pancreas are homogenous. The spleen is enlarged without focal intrasplenic mass. Kidneys measure mildly larger than normal range but are symmetric. No renal lesions are seen on images saved. IMPRESSION: Splenomegaly is noted and may warrant further clinical workup.
[2018-08-16 23:00] VITALS: BP 116/59; PULSE 91; TEMP 98
== END 2018-08-16 22:52 | disposition home or self-care (01) ==
LOC: EC 18:21
DX: N39.0 Urinary tract infection, site not specified (principal); R16.1 Splenomegaly, not elsewhere classified; F17.200 Nicotine dependence, unspecified, uncomplicated
CPT/HCPCS: 36415; 80053; 85025; 86308; 81001; 81025; 87086; 87077; 87186; 76700; 99284; 96365; 96375 ×2; 96361 ×2; J2405; J0696; J1885; 87040

== ENCOUNTER 2019-12-02 21:01 | Emergency (ER) | payer OTHER ==
[2019-12-02 21:06] VITALS: BP 132/82; PULSE 112; RESP 18; TEMP 98
--- NOTE | 2019-12-02 22:47 | ED ---
Skin/Abscess/FB HPI - General Chief complaint: Skin/Abscess/Foreign Body Stated complaint: Dental Abscess Source: patient Mode of arrival: ambulatory Limitations: no limitations - History of Present Illness Initial comments: Georgette is a 29-year-old female who presents to the emergency department today for evaluation of an oral lesion. Patient reports she noticed pain in the roof of her mouth couple days ago she's tried Tylenol Motrin and topical Orajel with minimal relief which prompted her to come to the ER for evaluation. Patient denies any history of oral lesions in the past she has no history of cold sores or known history of oral herpes. - Related Data Previous Rx's Medication Instructions Recorded HYDROcodone/APAP 5-325MG [[place] 1 tab PO Q6HR PRN #12 tab 08/16/18 5-325] Chlorhexidine Gluconate [Peridex] 15 ml PO BID #1 bottle 12/02/19 Penicillin V Potassium [Pen Vee K] 500 mg PO Q6H #28 tablet 12/02/19 Allergies Allergy/AdvReac Type Severity Reaction Status Date / Time No Known Allergies Allergy Verified 12/02/19 21:06 Review of Systems ROS Statement: Those systems with pertinent positive or pertinent negative responses have been documented in the HPI. ROS Other: All systems not noted in ROS Statement are negative. Past Medical History Additional Past Medical History / Comment(s): Positive HSV Type 2 History of Any Multi-Drug Resistant Organisms: None Reported Additional Past Surgical History / Comment(s): Tubes in ears, I/D of abscess behind left ear Past Anesthesia/Blood Transfusion Reactions: No Reported Reaction Past Psychological History: No Psychological Hx Reported Smoking Status: Current every day smoker Past Alcohol Use History: None Reported Past Drug Use History: None Reported - Past Family History Mother Family Medical History: Cancer General Exam - General Exam Comments Initial Comments: Physical Exam GENERAL: Patient is well-developed and well-nourished. Patient is nontoxic and well-hydrated and is in no distress. HENT: Normocephalic, Atraumatic. There is a ulcerating lesion measuring approximately 1 cm in diameter on the roof of the mouth and the left side near the molars. Some surrounding erythema of the gums specifically surrounding the molars Obvious oral abscess EYES: PERRL, EOMI PULMONARY: Unlabored respirations. CARDIOVASCULAR: RRR Warm and well perfused extremities ABDOMEN: Non-distended SKIN: No rashes or bruising No Facial erythema swelling or signs of infection : Deferred NEUROLOGIC: Alert and oriented Normal speech Normal gait MUSCULOSKELETAL: Moving all extremities with no apparent injury PSYCHIATRIC: No SI/HI Limitations: no limitations Course Vital Signs 12/02/19 21:02 Temperature 98 F Pulse Rate 112 H Respiratory 18 Rate Blood Pressure 132/82 O2 Sat by Pulse 99 Oximetry Medical Decision Making - Medical Decision Making The patient was seen and evaluated history is obtained from patient physical exam reveals a ulcerating lesion on the roof of the mouth. Patient is a smoker. There is some surrounding erythema therefore we will treat with antibiotics and give a oral mouthwash however advised the patient given that she is a smoker there is concerned that this could be an oral cancer she needs to follow up with primary care or an ear nose and throat doctor she is also referred to dentistry for follow-up. Disposition Clinical Impression: Oral mucosal lesion Disposition: HOME SELF-CARE Condition: Stable Additional Instructions: The lesion in your mouth could be due to infection, but as a smoker you do have higher risk of this being an oral cancer. You need to follow up with PCP and an ear nose and throat doctor or an oral surgeon for re-evaluation Please follow up with the [facility] dental clinic. [facility] [place] [address]. Phone number for new patients or [phone] for existing patients. [facility]. Must pay for x-rays then services are free. Call for an appoitnment. Prescriptions: Penicillin V Potassium [Pen Vee K] 500 mg PO Q6H #28 tablet Chlorhexidine Gluconate [Peridex] 15 ml PO BID #1 bottle Is patient prescribed a controlled substance at d/c from ED?: No Referrals: None,Stated [Primary Care Provider] - 1-2 days
== END 2019-12-02 22:08 | disposition home or self-care (01) ==
LOC: EC 21:01
DX: K13.70 Unspecified lesions of oral mucosa (principal); F17.200 Nicotine dependence, unspecified, uncomplicated
CPT/HCPCS: 99283

== ENCOUNTER 2020-03-31 14:00 | Emergency (ER) | payer OTHER ==
[2020-03-31 14:12] VITALS: RESP 18
[2020-03-31] MEDS ORDERED: LIDOCAINE 2% GEL 30 ML TUBE TOPICAL ONE (14:47)
[2020-03-31] MEDS ORDERED: OFLOXACIN 0.3% OPHTH DROPS 5 ML BOTTLE LEFT EAR STA (14:47)
[2020-03-31] MEDS ORDERED: AMOXIC-POT CLAV 875-125MG 1 EACH TAB PO STA (14:47)
[2020-03-31] MEDS ORDERED: ACET/COD 300 MG/30 MG STARTER PACK 6 TAB BTL PO STA (15:31)
--- NOTE | 2020-03-31 15:37 | ED ---
ENT HPI - General Chief complaint: ENT Stated complaint: ear swelling Time Seen by Provider: 03/31/20 14:12 Source: patient, RN notes reviewed Mode of arrival: ambulatory Limitations: no limitations - History of Present Illness Initial comments: 30-year-old female presents emergency Department chief complaint left ear pain. Patient states it's painful last couple days and noticeable sticking her finger. She states that she's had this in the past. Denies any. Chills she states is just painful. Patient states she did not stick anything in her ear. Patient offers no other complaints. - Related Data Previous Rx's Medication Instructions Recorded HYDROcodone/APAP 5-325MG [[place] 1 tab PO Q6HR PRN #12 tab 08/16/18 5-325] Chlorhexidine Gluconate [Peridex] 15 ml PO BID #1 bottle 12/02/19 Penicillin V Potassium [Pen Vee K] 500 mg PO Q6H #28 tablet 12/02/19 Amoxicillin/Potassium Clav 1 tab PO Q12HR #20 tab 03/31/20 [Augmentin 875-125 Tablet] Allergies Allergy/AdvReac Type Severity Reaction Status Date / Time No Known Allergies Allergy Verified 03/31/20 14:10 Review of Systems ROS Statement: Those systems with pertinent positive or pertinent negative responses have been documented in the HPI. ROS Other: All systems not noted in ROS Statement are negative. Past Medical History Additional Past Medical History / Comment(s): Positive HSV Type 2, History of Any Multi-Drug Resistant Organisms: None Reported Past Surgical History: Ear Surgery Additional Past Surgical History / Comment(s): Tubes in ears, I/D of abscess behind left ear, Past Anesthesia/Blood Transfusion Reactions: No Reported Reaction Past Psychological History: No Psychological Hx Reported Smoking Status: Current every day smoker Past Alcohol Use History: None Reported Past Drug Use History: None Reported - Past Family History Mother Family Medical History: Cancer General Exam Limitations: no limitations General appearance: alert, in no apparent distress Head exam: Present: atraumatic, normocephalic, normal inspection Eye exam: Present: normal appearance, PERRL, EOMI. Absent: scleral icterus, conjunctival injection, periorbital swelling ENT exam: Present: normal exam, normal oropharynx, mucous membranes moist, other (No mastoid tenderness). Absent: TM's normal bilaterally (Unable to visualize left TM), normal external ear exam (Erythema, fluctuant mass sticking out of the left EAC) Neck exam: Present: normal inspection, full ROM. Absent: tenderness, meningismus, lymphadenopathy Respiratory exam: Present: normal lung sounds bilaterally. Absent: respiratory distress, wheezes, rales, rhonchi, stridor Cardiovascular Exam: Present: regular rate, normal rhythm, normal heart sounds. Absent: systolic murmur, diastolic murmur, rubs, gallop, clicks Course Vital Signs 03/31/20 14:08 Temperature 98.3 F Pulse Rate 95 Respiratory 18 Rate Blood Pressure 122/78 O2 Sat by Pulse 100 Oximetry Procedures - Incision & Drainage Consent Obtained: verbal consent, written consent Site: other (Left EAC abscess) Anesthetic Used: lidocaine 2% (Topical gel) I&D Cleaning Method: Alcohol Wipe Sterile Field Used?: No Needle Aspiration Performed?: Yes I&D Drainage Obtained: Pus Culture Obtained?: Yes Patient Tolerated Procedure: well, no complications Medical Decision Making - Medical Decision Making 22-year-old female presented for left ear pain. Case discussed with Dr. Nunez was recommended I&D of abscess and follow-up in office. Patient was placed on Augmentin and Floxin drops as recommended. Disposition Clinical Impression: Abscess of left ear canal Disposition: HOME SELF-CARE Condition: Stable Instructions (If sedation given, give patient instructions): Abscess Incision and Drainage (ED) Additional Instructions: ofloxacin eardrops 10 drops twice a day to left ear. Please return to the Emergency Department if symptoms worsen or any other concerns. Prescriptions: Amoxicillin/Potassium Clav [Augmentin 875-125 Tablet] 1 tab PO Q12HR #20 tab Is patient prescribed a controlled substance at d/c from ED?: No Referrals: None,Stated [Primary Care Provider] - 1-2 days Walt Nunez MD [STAFF PHYSICIAN] - 1-2 days Time of Disposition: 15:37
[2020-03-31 15:59] VITALS: BP 118/65; PULSE 79; TEMP 97.3
== END 2020-03-31 15:59 | disposition home or self-care (01) ==
LOC: EC 14:00
DX: H66.42 Suppurative otitis media, unspecified, left ear (principal); F17.200 Nicotine dependence, unspecified, uncomplicated; Z96.22 Myringotomy tube(s) status
CPT/HCPCS: 10160; 87070; 87205; 99283

== ENCOUNTER 2020-05-30 04:50 | Emergency (ER) | payer OTHER ==
--- NOTE | 2020-05-30 05:46 | ED ---
Skin/Abscess/FB HPI - General Chief complaint: Skin/Abscess/Foreign Body Stated complaint: spider bite Time Seen by Provider: 05/30/20 05:40 Source: patient Mode of arrival: ambulatory Limitations: no limitations - History of Present Illness MD complaint: abscess/boil Onset/Timin -: days(s) Tetanus Up to Date: yes Location: back Severity: moderate Quality: dull Consistency: constant Improves with: none Worsens with: none Context: none Associated symptoms: denies other symptoms - Related Data Previous Rx's Medication Instructions Recorded HYDROcodone/APAP 5-325MG [[place] 1 tab PO Q6HR PRN #12 tab 08/16/18 5-325] Chlorhexidine Gluconate [Peridex] 15 ml PO BID #1 bottle 12/02/19 Penicillin V Potassium [Pen Vee K] 500 mg PO Q6H #28 tablet 12/02/19 Amoxicillin/Potassium Clav 1 tab PO Q12HR #20 tab 03/31/20 [Augmentin 875-125 Tablet] Sulfamethox-Tmp 800-160Mg [Bactrim 1 each PO Q12HR #10 tab 05/30/20 Ds] Allergies Allergy/AdvReac Type Severity Reaction Status Date / Time No Known Allergies Allergy Verified 05/30/20 05:00 Review of Systems ROS Statement: Those systems with pertinent positive or pertinent negative responses have been documented in the HPI. ROS Other: All systems not noted in ROS Statement are negative. Constitutional: Denies: fever, chills Cardiovascular: Denies: palpitations Skin: Reports: as per HPI, other (Abscess) Past Medical History Additional Past Medical History / Comment(s): Positive HSV Type 2, History of Any Multi-Drug Resistant Organisms: MRSA Date of last positivie culture/infection: 03/31/20 MDRO Source:: Left ear Past Surgical History: Ear Surgery Additional Past Surgical History / Comment(s): Tubes in ears, I/D of abscess behind left ear, Past Anesthesia/Blood Transfusion Reactions: No Reported Reaction Past Psychological History: No Psychological Hx Reported Smoking Status: Current every day smoker Past Alcohol Use History: None Reported Past Drug Use History: None Reported - Past Family History Mother Family Medical History: Cancer General Exam Limitations: no limitations General appearance: alert, in no apparent distress Respiratory exam: Present: normal lung sounds bilaterally. Absent: respiratory distress, wheezes, rales, rhonchi, stridor Cardiovascular Exam: Present: regular rate, normal rhythm, normal heart sounds. Absent: systolic murmur, diastolic murmur, rubs, gallop Skin exam: Present: warm, dry, intact, other (Patient has approximately 2 cm abscess posterior aspect left shoulder.) Course Vital Signs 05/30/20 05/30/20 04:57 06:18 Temperature 98.6 F 98.1 F Pulse Rate 110 H 99 Respiratory 18 16 Rate Blood Pressure 132/82 110/73 O2 Sat by Pulse 99 100 Oximetry Procedures - Incision & Drainage Consent Obtained: verbal consent Site: back Anesthetic Used: lidocaine 1% I&D Cleaning Method: Chloroprep Sterile Field Used?: Yes Scalpel Used: #11 Needle Aspiration Performed?: No Irrigation Performed?: Yes I&D Drainage Obtained: Pus, Blood Packing: Iodoform Culture Obtained?: No Patient Tolerated Procedure: well, no complications Medical Decision Making - Medical Decision Making Patient is 22-year-old woman with small subcutaneous abscess/infected sebaceous cyst. Incision and drainage is performed, see the procedure note. Small amount of purulent drainage and small amount of bleeding. The cavity is irrigated then iodoform gauze placed. We discussed appropriate further care and follow-up as well as return parameters. The patient also to have a course of Bactrim. Disposition Clinical Impression: Abscess Disposition: HOME SELF-CARE Condition: Good Instructions (If sedation given, give patient instructions): Abscess Incision and Drainage (ED) Prescriptions: Sulfamethox-Tmp 800-160Mg [Bactrim Ds] 1 each PO Q12HR #10 tab Is patient prescribed a controlled substance at d/c from ED?: No Referrals: None,Stated [Primary Care Provider] - 1-2 days
[2020-05-30] MEDS ORDERED: LIDOCAINE 1% INJ 10MG/ML (20 ML MDV) SQ ONE (05:47)
[2020-05-30 06:21] VITALS: BP 110/73; PULSE 99; RESP 16; TEMP 98.1
--- NOTE | 2020-06-01 03:39 | CDI ---
Dear Segundo Pineda MD Please provide procedure done related to lidocaine administered. Thank you, Sandrita Goldberg Vacuum Extractor Operator If you have any questions, please contact Server Assistant at [phone] [facility]
== END 2020-05-30 06:22 | disposition home or self-care (01) ==
LOC: EC 04:50
DX: L02.212 Cutaneous abscess of back [any part, except buttock and flank] (principal); L02.414 Cutaneous abscess of left upper limb; F17.200 Nicotine dependence, unspecified, uncomplicated; Z86.14 Personal history of Methicillin resistant Staphylococcus aureus infection
CPT/HCPCS: 99282; 10060; J2001

== ENCOUNTER 2020-07-15 16:56 | Emergency (ER) | payer OTHER ==
--- NOTE | 2020-07-15 18:41 | ED ---
General Adult HPI - General Chief complaint: Abdominal Pain Stated complaint: /doesnt feel baby Time Seen by Provider: 07/15/20 18:08 Source: patient, RN notes reviewed Mode of arrival: ambulatory Limitations: no limitations - History of Present Illness Initial comments: 30-year-old female presents to the emergency room for a chief complaint of . Patient states she would like an ultrasound performed. Patient reports she has no idea how far along she is. Patient guesses maybe her period was 2 months ago but she is very unsure of this. Patient denies any abdominal pain or vaginal bleeding. Patient reports she is very anxious about how far along she is and cannot get into her [facility] for a few more weeks. patient states she is here to find out how far along she is. Patient has no other complaints at this time including shortness of breath, chest pain, abdominal pain, nausea or vomiting, headache, or visual changes. - Related Data Previous Rx's Medication Instructions Recorded HYDROcodone/APAP 5-325MG [[place] 1 tab PO Q6HR PRN #12 tab 08/16/18 5-325] Chlorhexidine Gluconate [Peridex] 15 ml PO BID #1 bottle 12/02/19 Penicillin V Potassium [Pen Vee K] 500 mg PO Q6H #28 tablet 12/02/19 Amoxicillin/Potassium Clav 1 tab PO Q12HR #20 tab 03/31/20 [Augmentin 875-125 Tablet] Sulfamethox-Tmp 800-160Mg [Bactrim 1 each PO Q12HR #10 tab 05/30/20 Ds] Cephalexin [Keflex] 500 mg PO Q8H 7 Days #21 cap 07/15/20 Allergies Allergy/AdvReac Type Severity Reaction Status Date / Time No Known Allergies Allergy Verified 07/15/20 17:21 Review of Systems ROS Statement: Those systems with pertinent positive or pertinent negative responses have been documented in the HPI. ROS Other: All systems not noted in ROS Statement are negative. Past Medical History Additional Past Medical History / Comment(s): Positive HSV Type 2, History of Any Multi-Drug Resistant Organisms: MRSA Date of last positivie culture/infection: 03/31/20 MDRO Source:: Left ear Past Surgical History: Ear Surgery Additional Past Surgical History / Comment(s): Tubes in ears, I/D of abscess behind left ear, Past Anesthesia/Blood Transfusion Reactions: No Reported Reaction Past Psychological History: No Psychological Hx Reported Smoking Status: Current every day smoker Past Alcohol Use History: None Reported Past Drug Use History: None Reported - Past Family History Mother Family Medical History: Cancer General Exam Limitations: no limitations General appearance: alert, in no apparent distress Head exam: Present: atraumatic, normocephalic, normal inspection Eye exam: Present: normal appearance, PERRL, EOMI. Absent: scleral icterus, conjunctival injection, periorbital swelling ENT exam: Present: normal exam, mucous membranes moist Neck exam: Present: normal inspection, full ROM. Absent: tenderness, meningismus, lymphadenopathy Respiratory exam: Present: normal lung sounds bilaterally. Absent: respiratory distress, wheezes, rales, rhonchi, stridor Cardiovascular Exam: Present: regular rate, normal rhythm, normal heart sounds. Absent: systolic murmur, diastolic murmur, rubs, gallop, clicks GI/Abdominal exam: Present: soft, normal bowel sounds. Absent: distended, tenderness, guarding, rebound, rigid Course Vital Signs 07/15/20 07/15/20 17:22 19:04 Temperature 97.9 F 98.4 F Pulse Rate 109 H 95 Respiratory 18 16 Rate Blood Pressure 123/79 110/71 O2 Sat by Pulse 100 100 Oximetry Medical Decision Making - Medical Decision Making Ultrasound shows intrauterine demise at approximately 6 weeks and 3 days. I discussed this finding with patient. She is agreeable to following up outpatient to ensure that she does have a complete . She will be given a referral. I also treated patient with Keflex given 17 white blood cells in the urine, culture pending. - Lab Data Lab Results 07/15/20 07/15/20 Range/Units 17:43 18:43 Urine Color Yellow Urine Appearance Clear (Clear) Urine pH 5.5 (5.0-8.0) Ur Specific [place] 1.025 (1.001-1.035) Urine Protein Trace H (Negative) Urine Glucose (UA) Negative (Negative) Urine Ketones Negative (Negative) Urine Blood Negative (Negative) Urine Nitrite Negative (Negative) Urine Bilirubin Negative (Negative) Urine Urobilinogen 2.0 (<2.0) mg/dL Ur Leukocyte Esterase Trace H (Negative) Urine RBC 2 (0-5) /hpf Urine WBC 17 H (0-5) /hpf Ur Squamous Epith Cells 1 (0-4) /hpf Amorphous Sediment Rare H (None) /hpf Urine Bacteria Occasional H (None) /hpf Hyaline Casts 3 H (0-2) /lpf Urine Mucus Moderate H (None) /hpf Urine HCG, Qual Detected (Not Detectd) Disposition Clinical Impression: Incomplete miscarriage Disposition: HOME SELF-CARE Condition: Good Instructions (If sedation given, give patient instructions): Miscarriage (ED) Additional Instructions: Please take antibiotic for possible urinary tract infection. Please follow-up with [facility]. Call Saturday for released appointment. Return here for any worsening symptoms such as fevers or abdominal pain.. Prescriptions: Cephalexin [Keflex] 500 mg PO Q8H 7 Days #21 cap Is patient prescribed a controlled substance at d/c from ED?: No Referrals: Dilma Weber MD [STAFF PHYSICIAN] - 1-2 days Time of Disposition: 19:59
--- NOTE | 2020-07-15 19:06 | US ---
EXAMINATION TYPE: Transabdominal DATE OF EXAM: 07/15/2020 6:58 PM COMPARISON: NONE CLINICAL HISTORY: cramping. LMP unknown EXAM PERFORMED: Transvaginal (TV) and Transabdominal (TA) EXAM MEASUREMENTS: GESTATIONAL AGE / DATING Dates by Current Scan for: (6 weeks/3 days) demise MATERNAL ANATOMY Uterus: 7.5 x 3.5 x 6.5 cm Right Ovary: 2.7 x 1.6 x 1.6 cm Left Ovary: 3.4 x 3.2 x 1.9 cm Post CDS / Adnexa: wnl Presence of free fluid: No Presence of corpus luteal cyst: Yes, left ovary measuring 1.7 x 2.0 x 1.8 cm GESTATION / SURVEY CRL: 5.7 mm (6 weeks/3 days) Yolk Sac (normal less than 6mm): not visualized IUP: Demise Date of LMP: Unknown Beta HcG (if available): Not available at this time demise measuring 6 weeks 3 days. Septations visualized within gestational sac. IMPRESSION: Intrauterine demise at approximately 6 weeks and 3 days gestation.
[2020-07-15 19:15] LABS: Amorphous Sediment,Urine Rare /hpf; Appearance,Urine Clear (Clear); Bacteria,Urine Occasional /hpf; Bilirubin,Urine Negative (Negative); Blood,Urine Negative (Negative); Color,Urine Yellow; Glucose,Urine (UA) Negative (Negative); Hyaline Casts,Urine 3 /lpf (0-2); Ketones,Urine Negative (Negative); Leukocyte Esterase,Urine Trace (Negative); Mucus,Urine Moderate /hpf; Nitrite,Urine Negative (Negative); PH, Urine 5.5 (5.0-8.0); Protein,Urine Trace (Negative); RBC,Urine 2 /hpf (0-5); Specific Gravity,Urine 1.025 (1.001-1.035); Squamous Epithelial Cell,Urine 1 /hpf (0-4); WBC,Urine 17 /hpf (0-5)
[2020-07-15 19:44] VITALS: BP 110/71; PULSE 95; RESP 16; TEMP 98.4
== END 2020-07-15 20:14 | disposition home or self-care (01) ==
LOC: EC 16:56
DX: O03.4 Incomplete spontaneous abortion without complication (principal); F17.200 Nicotine dependence, unspecified, uncomplicated
CPT/HCPCS: 76801; 76817; 81001; 81025; 87077; 87086; 87186; 99284

== ENCOUNTER 2020-08-05 12:38 | Emergency (ER) | payer OTHER ==
[2020-08-05 12:55] VITALS: BP 115/66; TEMP 98.1
[2020-08-05] MEDS ORDERED: CEPHALEXIN 500MG STARTER PACK 4 CAP BTL PO STA (13:46)
[2020-08-05] MEDS ORDERED: MUPIROCIN 2% OINT 22 GM TUBE TOPICAL STA (13:46)
[2020-08-05] MEDS ORDERED: SULFAMETH-TMP DS STARTER PACK 2 TAB BTL PO STA (13:46)
--- NOTE | 2020-08-05 13:51 | ED ---
General Adult HPI - General Chief complaint: Skin/Abscess/Foreign Body Stated complaint: facial swelling Time Seen by Provider: 08/05/20 13:21 Source: patient, RN notes reviewed Mode of arrival: ambulatory Limitations: no limitations - History of Present Illness Initial comments: 30-year-old female with a past medical history of MRSA resents to the emergency room for a chief complaint of abscess in the nose. Patient states this started yesterday. States it is painful. Patient reports that it is actively draining. She denies fevers or chills. She admits it is making her lip feel little bit swollen as well. Neck feels fine. No headache. Patient reports she had an abscess of her ear in the past that she needed antibiotics for. She denies h istory of IV drug abuse. She denies any chance of .Patient has no other complaints at this time including shortness of breath, chest pain, abdominal pain, nausea or vomiting, headache, or visual changes. - Related Data Previous Rx's Medication Instructions Recorded HYDROcodone/APAP 5-325MG [[place] 1 tab PO Q6HR PRN #12 tab 08/16/18 5-325] Chlorhexidine Gluconate [Peridex] 15 ml PO BID #1 bottle 12/02/19 Penicillin V Potassium [Pen Vee K] 500 mg PO Q6H #28 tablet 12/02/19 Amoxicillin/Potassium Clav 1 tab PO Q12HR #20 tab 03/31/20 [Augmentin 875-125 Tablet] Sulfamethox-Tmp 800-160Mg [Bactrim 1 each PO Q12HR #10 tab 05/30/20 Ds] Cephalexin [Keflex] 500 mg PO Q8H 7 Days #21 cap 07/15/20 Cephalexin [Keflex] 500 mg PO Q6HR 10 Days #40 cap 08/05/20 Mupirocin Calcium [Bactroban 2% 1 applic NASAL TID 5 Days #20 gm 08/05/20 Nasal Ointment] Sulfamethox-Tmp 800-160Mg [Bactrim 1 tab PO Q12HR #20 tab 08/05/20 DS 800-160 mg] Allergies Allergy/AdvReac Type Severity Reaction Status Date / Time No Known Allergies Allergy Verified 08/05/20 12:55 Review of Systems ROS Statement: Those systems with pertinent positive or pertinent negative responses have been documented in the HPI. ROS Other: All systems not noted in ROS Statement are negative. Past Medical History Additional Past Medical History / Comment(s): Positive HSV Type 2, History of Any Multi-Drug Resistant Organisms: MRSA Date of last positivie culture/infection: 03/31/20 MDRO Source:: Left ear Past Surgical History: Ear Surgery Additional Past Surgical History / Comment(s): Tubes in ears, I/D of abscess behind left ear, Past Anesthesia/Blood Transfusion Reactions: No Reported Reaction Past Psychological History: No Psychological Hx Reported Smoking Status: Current every day smoker Past Alcohol Use History: None Reported Past Drug Use History: None Reported - Past Family History Mother Family Medical History: Cancer General Exam Limitations: no limitations General appearance: alert, in no apparent distress Head exam: Present: atraumatic, normocephalic, normal inspection Eye exam: Present: normal appearance, PERRL, EOMI. Absent: scleral icterus, conjunctival injection, periorbital swelling ENT exam: Present: mucous membranes moist, other (Patient has an actively draining 1 cm abscess noted on the inner left side of the septum. This is currently actively draining purulent material.) Neck exam: Present: normal inspection, full ROM. Absent: tenderness, meningismus, lymphadenopathy Respiratory exam: Present: normal lung sounds bilaterally. Absent: respiratory distress, wheezes, rales, rhonchi, stridor Cardiovascular Exam: Present: regular rate, normal rhythm, normal heart sounds. Absent: bradycardia, tachycardia, irregular rhythm Neurological exam: Present: alert Course Vital Signs 08/05/20 12:51 Temperature 98.1 F Pulse Rate 107 H Respiratory 16 Rate Blood Pressure 115/66 O2 Sat by Pulse 98 Oximetry Medical Decision Making - Medical Decision Making Patient has an abscess noted of the nasal septum. No significant facial swelling. Minimal edema of the left upper lip. No abscess in the oropharynx or lip. I did express. Material and culture was sent. Keflex and Bactrim ordered. Patient is understanding of strict return parameters given location of abscess. She will follow-up with her doctor otherwise. I discussed this case with attending Dr. Shah who agrees with this assessment and treatment plan. Disposition Clinical Impression: Nasal abscess Disposition: HOME SELF-CARE Condition: Good Instructions (If sedation given, give patient instructions): Abscess (ED), Warm Compress or Soak (ED) Additional Instructions: Please take antibiotics as directed. Apply warm compresses. Follow up with your doctor for recheck in one to 2 days. If symptoms are not improving in 24 hours or worsening in the next 24 hours return to the emergency room for a recheck. Prescriptions: Sulfamethox-Tmp 800-160Mg [Bactrim DS 800-160 mg] 1 tab PO Q12HR #20 tab Mupirocin Calcium [Bactroban 2% Nasal Ointment] 1 applic NASAL TID 5 Days #20 gm Cephalexin [Keflex] 500 mg PO Q6HR 10 Days #40 cap Is patient prescribed a controlled substance at d/c from ED?: No Referrals: Vilma Kramer MD [REFERRING] - 1-2 days Time of Disposition: 13:49
[2020-08-05 14:03] VITALS: PULSE 99; RESP 18
== END 2020-08-05 14:11 | disposition home or self-care (01) ==
LOC: EC 12:38
DX: J34.0 Abscess, furuncle and carbuncle of nose (principal); F17.200 Nicotine dependence, unspecified, uncomplicated
CPT/HCPCS: 87070; 87205; 99283

== ENCOUNTER 2020-08-07 15:16 | Observation (INO) | payer OTHER ==
[2020-08-07 15:46] LABS: Basophils # (A) 0.1 k/uL (0-0.2); Basophils % (A) 1 %; Eosinophils # (A) 0.4 k/uL (0-0.7); Eosinophils % (A) 7 %; HCT 43.9 % (34.0-46.0); HGB 14.1 gm/dL (11.4-16.0); Lymphocytes # (A) 1.1 k/uL (1.0-4.8); Lymphocytes % (A) 17 %; MCH 27.9 pg (25.0-35.0); MCHC 32.2 g/dL (31.0-37.0); MCV 86.6 fL (80.0-100.0); Mean Platelet Volume 7.9; Monocytes # (A) 0.3 k/uL (0-1.0); Monocytes % (A) 5 %; Neutrophils # (A) 4.5 k/uL (1.3-7.7); Neutrophils % (A) 70 %; Platelet Count 169 k/uL (150-450); RBC 5.07 m/uL (3.80-5.40); RDW 12.4 % (11.5-15.5); WBC 6.4 k/uL (3.8-10.6)
[2020-08-07 15:55] LABS: ALT 123 U/L (4-34); AST 63 U/L (14-36); African American GFR (CKD) >90 (>60 ml/min/1.73 sqM); Albumin 4.1 g/dL (3.5-5.0); Alkaline Phosphatase 93 U/L (38-126); Anion Gap 5 mmol/L; Blood Urea Nitrogen 11 mg/dL (7-17); Carbon Dioxide 25 mmol/L (22-30); Chloride 105 mmol/L (98-107); Glucose 86 mg/dL (74-99); Non-African American GFR(CKD) >90 (>60 ml/min/1.73 sqM); Sodium 135 mmol/L (137-145); Total Bilirubin 0.4 mg/dL (0.2-1.3); Total Protein 7.2 g/dL (6.3-8.2)
[2020-08-07] MEDS ORDERED: ACETAMINOPHEN TAB 325 MG TAB PO STA (15:57)
--- NOTE | 2020-08-07 16:24 | US ---
EXAMINATION TYPE: Transabdominal DATE OF EXAM: 08/07/2020 4:05 PM COMPARISON: NONE CLINICAL HISTORY: pain. Hx demise on 07/15. Patient states no bleeding or D/C until 4 days ago. Patient states pain has been worse today. EXAM PERFORMED: Transabdominal (TA) EXAM MEASUREMENTS: GESTATIONAL AGE / DATING Dates by First Scan: (9 weeks/5 days) demise Dates by Current Scan for: (6 weeks/2 days) EDC: 03/31/2021 MATERNAL ANATOMY Uterus: 9.1 x 5.1 x 4.5 cm Right Ovary: 2.8 x 2.0 x 1.8 cm Left Ovary: 3.3 x 2.1 x 2.0 cm Post CDS / Adnexa: no free fluid Presence of free fluid: no Presence of subchorionic bleed: no GESTATION / SURVEY CRL: 0.5 cm (6 weeks/1 days) MSD: 1.9 cm (6 weeks/3 days) Yolk Sac (normal less than 6mm): not visualized Heart Rate: 0 bpm IUP: Demise Date of LMP: unknown Beta HcG (if available): Not available at this time GS visualized in OCTAVIO. No FHT's visualized. IMPRESSION: Irregular gestational sac in the lower uterine segment. Tiny pole 4 mm without evidence of card iac activity and consistent with demise.
[2020-08-07] MEDS ORDERED: MORPHINE SULFATE 4 MG/ML SYRINGE IVP PRN (16:36)
--- NOTE | 2020-08-07 16:41 | ED ---
Female Urogenital HPI - General Source: patient Mode of arrival: ambulatory Limitations: no limitations <Noris Nelson - Last Filed: 08/07/20 18:51> <Lizzie Clarke - Last Filed: 08/10/20 16:26> - General Chief complaint: Vaginal Bleeding Stated complaint: miscarriage Time Seen by Provider: 08/07/20 15:26 - History of Present Illness Initial comments: 30yo female presenting for lower pelvic cramping, vaginal bleeding, told her baby was not alive 3 weeks ago. Patient presents for vaginal bleeding x 4 days. Increased today to a heavier flow and cramping mid lower abdomen. Pateint states she saw Dr. ritchie a week ago and was given 3 options, including D&C or natural miscarriage. Pt states she wanted to attempt natural passage. Patient denies fevers, dysuria. But states that she cannot take the cramping. pt denies lightheaded sensation, nausea, vomting, presyncope or sensation that heart is racing. Patient appears uncomfortable but not in distress on arrival. (Noris Nelson) - Related Data Home Medications Medication Instructions Recorded Confirmed No Known Home Medications 08/07/20 08/08/20 Allergies Allergy/AdvReac Type Severity Reaction Status Date / Time No Known Allergies Allergy Verified 08/08/20 11:46 Review of Systems ROS Other: All systems not noted in ROS Statement are negative. <Noris Nelson - Last Filed: 08/07/20 18:51> ROS Other: All systems not noted in ROS Statement are negative. <Lizzie Clarke - Last Filed: 08/10/20 16:26> ROS Statement: Those systems with pertinent positive or pertinent negative responses have been documented in the HPI. Past Medical History Additional Past Medical History / Comment(s): Positive HSV Type 2, History of Any Multi-Drug Resistant Organisms: MRSA Date of last positivie culture/infection: 03/31/20 MDRO Source:: Left ear Past Surgical History: Ear Surgery Additional Past Surgical History / Comment(s): Tubes in ears, I/D of abscess behind left ear, Past Anesthesia/Blood Transfusion Reactions: No Reported Reaction Past Psychological History: No Psychological Hx Reported Smoking Status: Current every day smoker Past Alcohol Use History: None Reported Past Drug Use History: None Reported - Past Family History Mother Family Medical History: Cancer <MoralesfeliceNoris Caleb - Last Filed: 08/07/20 18:51> General Exam Limitations: no limitations <Noris Nelson - Last Filed: 08/07/20 18:51> - General Exam Comments Initial Comments: General: The patient is awake and alert, in no distress Eye: +3 mm pupils are equal, round and reactive to light, extra-ocular movements are intact. No nystagmus. There is normal conjunctiva bilaterally. No signs of icterus. Cardiovascular: There is a regular rate and rhythm. No murmur, rub or gallop is appreciated. Respiratory: Lungs are clear to auscultation, respirations are non-labored, breath sounds are equal. No wheezes, stridor, rales, or rhonchi. Gastrointestinal: Soft, non-distended, tender midline lower pelvic region of abdomen without masses or organomegaly noted. There is no rebound or guarding present. : no adnexal tenderness scant amound of dark blood in vault, os does appear open. no odors Musculoskeletal: Normal ROM, no tenderness. Strength 5/5. Sensation intact. Radial pulses equal bilaterally 2+. Neurological: A&O x 3. CN II-XII intact grossly, There are no obvious motor or sensory deficits. Coordination appears grossly intact. Speech is normal. Skin: Skin is warm and dry and no rashes or lesions are noted. Psychiatric: Cooperative, appropriate mood & affect, normal judgment. (Noris Nelson) Course Vital Signs 08/07/20 08/07/20 15:18 16:59 Temperature 98.9 F Pulse Rate 118 H 87 Respiratory 18 20 Rate Blood Pressure 111/72 129/85 O2 Sat by Pulse 98 100 Oximetry Medical Decision Making - Lab Data Result diagrams: 08/07/20 15:34 08/07/20 15:34 <Noris Nelson - Last Filed: 08/07/20 18:51> - Lab Data Result diagrams: 08/08/20 07:39 08/07/20 15:34 <Lizzie Clarke - Last Filed: 08/10/20 16:26> - Medical Decision Making 30-year-old male presenting today for chief complaint of lower pelvic pain, history of field demise. Bleeding 4 days. Light to moderate bleeding on physical examination no neck tenderness. Midline on abdominal exam. Ultrasound results recent demise. Given the length of time. OB was called Dr. Phelan recommended admission for pain control and further creation of care plan. patient agreeable to admission pt evaluated by dr. clarke. B+ blood type. HCG ~1500 (Noris Nelson) I was available for consultation in the emergency department. The history and physical exam were done by the midlevel provider. I was consulted for this patients care. I reviewed the case with the midlevel provider and based on their presentation of the patient, I agree with the assessment, medical decision making and plan of care as documented. I evaluated the patient myself. Spoke with Dr. Phelan who agreed to admit the patient. Chart was dictated using Directr dictation software. Attempts were made to correct any dictation errors however some typographical errors may persist. (Lizzie Clarke) - Lab Data Lab Results 08/07/20 08/07/20 08/07/20 Range/Units 15:25 15:25 15:34 WBC 6.4 (3.8-10.6) k/uL RBC 5.07 (3.80-5.40) m/uL Hgb 14.1 (11.4-16.0) gm/dL Hct 43.9 (34.0-46.0) % MCV 86.6 (80.0-100.0) fL MCH 27.9 (25.0-35.0) pg MCHC 32.2 (31.0-37.0) g/dL RDW 12.4 (11.5-15.5) % Plt Count 169 (150-450) k/uL Neutrophils % 70 % Lymphocytes % 17 % Monocytes % 5 % Eosinophils % 7 % Basophils % 1 % Neutrophils # 4.5 (1.3-7.7) k/uL Lymphocytes # 1.1 (1.0-4.8) k/uL Monocytes # 0.3 (0-1.0) k/uL Eosinophils # 0.4 (0-0.7) k/uL Basophils # 0.1 (0-0.2) k/uL Sodium (137-145) mmol/L Potassium (3.5-5.1) mmol/L Chloride (98-107) mmol/L Carbon Dioxide (22-30) mmol/L Anion Gap mmol/L BUN (7-17) mg/dL Creatinine (0.52-1.04) mg/dL Est GFR (CKD-EPI)AfAm (>60 ml/min/1.73 sqM) Est GFR (CKD-EPI)NonAf (>60 ml/min/1.73 sqM) Glucose (74-99) mg/dL Calcium (8.4-10.2) mg/dL Total Bilirubin (0.2-1.3) mg/dL AST (14-36) U/L ALT (4-34) U/L Alkaline Phosphatase (38-126) U/L Total Protein (6.3-8.2) g/dL Albumin (3.5-5.0) g/dL HCG, Quant mIU/mL Urine HCG, Qual Detected (Not Detectd) Urine Opiates Screen (NotDetected) Ur Oxycodone Screen (NotDetected) Urine Methadone Screen (NotDetected) Ur Propoxyphene Screen (NotDetected) Ur Barbiturates Screen (NotDetected) U Tricyclic Antidepress (NotDetected) Ur Phencyclidine Scrn (NotDetected) Ur Amphetamines Screen (NotDetected) U Methamphetamines Scrn (NotDetected) U Benzodiazepines Scrn (NotDetected) Urine Cocaine Screen (NotDetected) U Marijuana (THC) Screen (NotDetected) Chlamydia Source Vagina Chlamydia DNA (PCR) Negative (Neg,Equiv) N. gonorrhoeae Source Vagina N.gonorrhoeae DNA Probe Negative (Neg,Equiv) Trichomonas Ag (Rapid) (Negative) Blood Type Blood Type Recheck Bld Type Recheck Status 08/07/20 08/07/20 08/07/20 Range/Units 15:34 15:34 15:34 WBC (3.8-10.6) k/uL RBC (3.80-5.40) m/uL Hgb (11.4-16.0) gm/dL Hct (34.0-46.0) % MCV (80.0-100.0) fL MCH (25.0-35.0) pg MCHC (31.0-37.0) g/dL RDW (11.5-15.5) % Plt Count (150-450) k/uL Neutrophils % % Lymphocytes % % Monocytes % % Eosinophils % % Basophils % % Neutrophils # (1.3-7.7) k/uL Lymphocytes # (1.0-4.8) k/uL Monocytes # (0-1.0) k/uL Eosinophils # (0-0.7) k/uL Basophils # (0-0.2) k/uL Sodium 135 L (137-145) mmol/L Potassium 4.0 (3.5-5.1) mmol/L Chloride 105 (98-107) mmol/L Carbon Dioxide 25 (22-30) mmol/L Anion Gap 5 mmol/L BUN 11 (7-17) mg/dL Creatinine 0.75 (0.52-1.04) mg/dL Est GFR (CKD-EPI)AfAm >90 (>60 ml/min/1.73 sqM) Est GFR (CKD-EPI)NonAf >90 (>60 ml/min/1.73 sqM) Glucose 86 (74-99) mg/dL Calcium 9.0 (8.4-10.2) mg/dL Total Bilirubin 0.4 (0.2-1.3) mg/dL AST 63 H (14-36) U/L ALT 123 H (4-34) U/L Alkaline Phosphatase 93 (38-126) U/L Total Protein 7.2 (6.3-8.2) g/dL Albumin 4.1 (3.5-5.0) g/dL HCG, Quant mIU/mL Urine HCG, Qual (Not Detectd) Urine Opiates Screen (NotDetected) Ur Oxycodone Screen (NotDetected) Urine Methadone Screen (NotDetected) Ur Propoxyphene Screen (NotDetected) Ur Barbiturates Screen (NotDetected) U Tricyclic Antidepress (NotDetected) Ur Phencyclidine Scrn (NotDetected) Ur Amphetamines Screen (NotDetected) U Methamphetamines Scrn (NotDetected) U Benzodiazepines Scrn (NotDetected) Urine Cocaine Screen (NotDetected) U Marijuana (THC) Screen (NotDetected) Chlamydia Source Chlamydia DNA (PCR) (Neg,Equiv) N. gonorrhoeae Source N.gonorrhoeae DNA Probe (Neg,Equiv) Trichomonas Ag (Rapid) Negative (Negative) Blood Type B Positive Blood Type Recheck B Pos Bld Type Recheck Status No 08/07/20 08/07/20 Range/Units 15:34 16:11 WBC (3.8-10.6) k/uL RBC (3.80-5.40) m/uL Hgb (11.4-16.0) gm/dL Hct (34.0-46.0) % MCV (80.0-100.0) fL MCH (25.0-35.0) pg MCHC (31.0-37.0) g/dL RDW (11.5-15.5) % Plt Count (150-450) k/uL Neutrophils % % Lymphocytes % % Monocytes % % Eosinophils % % Basophils % % Neutrophils # (1.3-7.7) k/uL Lymphocytes # (1.0-4.8) k/uL Monocytes # (0-1.0) k/uL Eosinophils # (0-0.7) k/uL Basophils # (0-0.2) k/uL Sodium (137-145) mmol/L Potassium (3.5-5.1) mmol/L Chloride (98-107) mmol/L Carbon Dioxide (22-30) mmol/L Anion Gap mmol/L BUN (7-17) mg/dL Creatinine (0.52-1.04) mg/dL Est GFR (CKD-EPI)AfAm (>60 ml/min/1.73 sqM) Est GFR (CKD-EPI)NonAf (>60 ml/min/1.73 sqM) Glucose (74-99) mg/dL Calcium (8.4-10.2) mg/dL Total Bilirubin (0.2-1.3) mg/dL AST (14-36) U/L ALT (4-34) U/L Alkaline Phosphatase (38-126) U/L Total Protein (6.3-8.2) g/dL Albumin (3.5-5.0) g/dL HCG, Quant 1510.5 mIU/mL Urine HCG, Qual (Not Detectd) Urine Opiates Screen Not Detected (NotDetected) Ur Oxycodone Screen Not Detected (NotDetected) Urine Methadone Screen Not Detected (NotDetected) Ur Propoxyphene Screen Not Detected (NotDetected) Ur Barbiturates Screen Not Detected (NotDetected) U Tricyclic Antidepress Not Detected (NotDetected) Ur Phencyclidine Scrn Not Detected (NotDetected) Ur Amphetamines Screen Detected H (NotDetected) U Methamphetamines Scrn Detected H (NotDetected) U Benzodiazepines Scrn Not Detected (NotDetected) Urine Cocaine Screen Not Detected (NotDetected) U Marijuana (THC) Screen Detected H (NotDetected) Chlamydia Source Chlamydia DNA (PCR) (Neg,Equiv) N. gonorrhoeae Source N.gonorrhoeae DNA Probe (Neg,Equiv) Trichomonas Ag (Rapid) (Negative) Blood Type Blood Type Recheck Bld Type Recheck Status Disposition Is patient prescribed a controlled substance at d/c from ED?: No Time of Disposition: 18:10 Decision to Admit Reason: Admit from EC Decision Date: 08/07/20 Decision Time: 18:10 <Noris Nelson - Last Filed: 08/07/20 18:51> <Lizzie Clarek - Last Filed: 08/10/20 16:26> Clinical Impression: demise, Pelvic pain Disposition: ADMITTED IP TO THIS [facility] Condition: Stable
[2020-08-07] MEDS ORDERED: NALOXONE 0.4 MG/ML 1 ML VIAL IV PRN (17:08)
[2020-08-07 19:38] LABS: Amphetamine Screen,Urine Detected (NotDetected); Barbiturate Screen,Urine Not Detected (NotDetected); Benzodiazepines Screen,Urine Not Detected (NotDetected); Cocaine Screen,Urine Not Detected (NotDetected); Methadone Screen, Urine Not Detected (NotDetected); Opiate Screen,Urine Not Detected (NotDetected); Oxycodone Screen, Urine Not Detected (NotDetected); Phencyclidine Screen,Urine Not Detected (NotDetected); Tricyclic Antidepressant,Urine Not Detected (NotDetected); Urn Cannabinoid Scrn Detected (NotDetected)
[2020-08-07 19:50] LABS: Basophils % (A) 1 %; Eosinophils # (A) 0.3 k/uL (0-0.7); Eosinophils % (A) 5 %; HCT 39.2 % (34.0-46.0); HGB 12.6 gm/dL (11.4-16.0); Lymphocytes # (A) 0.9 k/uL (1.0-4.8); Lymphocytes % (A) 13 %; MCH 28.3 pg (25.0-35.0); MCHC 32.3 g/dL (31.0-37.0); MCV 87.8 fL (80.0-100.0); Mean Platelet Volume 8.2; Monocytes # (A) 0.4 k/uL (0-1.0); Monocytes % (A) 6 %; Neutrophils # (A) 5.2 k/uL (1.3-7.7); Neutrophils % (A) 76 %; Platelet Count 152 k/uL (150-450); RBC 4.46 m/uL (3.80-5.40); RDW 12.4 % (11.5-15.5); WBC 6.9 k/uL (3.8-10.6)
[2020-08-07] MEDS ORDERED: ACETAMINOPHEN IV (For NPO) 1,000 MG in EMPTY BAG 1 BAG IVPB PRN (20:25)
--- NOTE | 2020-08-07 21:47 | P.HPOB ---
History of Present Illness H&P Date: 08/07/20 Chief Complaint: 6 week missed The patient is a 30-year-old 3 para 2 who is previously seen in the emergency room approximately 2-3 weeks ago with a diagnosis of missed . She was having no ongoing symptoms at that time and was released to follow-up in the office which she failed to do. She returned to the ER tonight with increased cramping and significant discomfort as well as some ongoing vaginal bleeding, though not heavy. Ultrasound done through the emergency room confirms the above diagnosis. She is now requesting D&C. As it is not currently emergent, the procedure was deferred until tomorrow at which time the OR staff will be available. She was admitted for 23 hour observation and will be kept with nothing by mouth after midnight in anticipation of the procedure tomorrow morning. The risks and complications the procedure have been discussed. Obstetrical history: 3 para 2 with 2 previous vaginal deliveries, one of which may have been slightly premature at 36+ weeks. Remainder of her statistics are listed in history present illness. Ultrasound has confirmed the diagnosis of missed or incomplete . Gynecologic history: Unremarkable with no apparent history of any infections to include STDs. Review of Systems Review of systems is confined to history of present illness. Past Medical History Additional Past Medical History / Comment(s): Positive HSV Type 2, hx frequent UTI/kidney infection History of Any Multi-Drug Resistant Organisms: MRSA Date of last positivie culture/infection: 03/31/20, 08/06/20 MDRO Source:: Left ear, left nostril Past Surgical History: Ear Surgery Additional Past Surgical History / Comment(s): Tubes in ears, I/D of abscess behind left ear, 6 teeth recently extracted Past Anesthesia/Blood Transfusion Reactions: No Reported Reaction Past Psychological History: Depression Additional Psychological History / Comment(s): not medicated Smoking Status: Current every day smoker Past Alcohol Use History: None Reported Past Drug Use History: Marijuana Additional Drug Use History / Comment(s): few times daily - Past Family History Mother Family Medical History: Cancer, Hypertension Medications and Allergies Home Medications Medication Instructions Recorded Confirmed Type No Known Home Medications 08/07/20 08/07/20 History Allergies Allergy/AdvReac Type Severity Reaction Status Date / Time No Known Allergies Allergy Verified 08/07/20 18:59 Exam Vital Signs Temp Pulse Pulse Resp BP BP Pulse Ox 08/07/20 19:32 98.2 F 93 14 114/73 100 08/07/20 18:57 97.3 F L 88 16 118/78 100 08/07/20 16:59 87 20 129/85 100 08/07/20 15:18 98.9 F 118 H 18 111/72 98 Intake and Output 08/07/20 08/07/20 08/07/20 06:59 14:59 22:59 Other: Weight 56.699 kg In general, this is a well-developed, well-nourished white female in no acute distress. Her heart has a regular rhythm and rate without murmur. Her lungs are clear to auscultation bilaterally in all pulido. Her abdomen is nondistended, has normal active bowel sounds, soft, nontender, without any palpable masses, hepatomegaly, or hernias. Her extremities are without any cyanosis, clubbing, or edema and are nontender to palpation bilaterally. Digital cervical examination is deferred to the operating room. Previously reported examination demonstrates a small amount of clot within the vaginal vault and the cervix is undilated. Results Result Diagrams: 08/07/20 19:25 08/07/20 15:34 Abnormal Lab Results - Last 24 Hours (Table) 08/07/20 08/07/20 08/07/20 Range/Units 15:34 16:11 19:25 Lymphocytes # 0.9 L (1.0-4.8) k/uL Sodium 135 L (137-145) mmol/L AST 63 H (14-36) U/L ALT 123 H (4-34) U/L Ur Amphetamines Screen Detected H (NotDetected) U Methamphetamines Scrn Detected H (NotDetected) U Marijuana (THC) Screen Detected H (NotDetected) Assessment and Plan (1) Incomplete miscarriage Current Visit: Yes Status: Acute Code(s): O03.4 - INCOMPLETE SPONTANEOUS WITHOUT COMPLICATION SNOMED Code(s): 294481171 Plan: The patient is admitted for 23 hour observation in anticipation of proceeding with dilation and aspiration curettage tomorrow when the operating room team is available. The risks and complications of the procedure been discussed including the risk for bleeding, bleeding, transfusion, infection, and injury to local structures to specifically include uterine perforation, Asherman syndrome, and the rare potential for cervical incompetence. She has understood all this and agreed to proceed. She will be kept with nothing by mouth after midnight in anticipation of the procedure as noted above.
[2020-08-07] MEDS: LACTATED RINGERS 1,000 ML IV SCH (23:28)
[2020-08-08] MEDS: HYDROmorphone 0.5 MG/0.5 ML SYRINGE IVP PRN ×2 (00:15→07:58)
[2020-08-08] MEDS: LACTATED RINGERS 1,000 ML IV SCH ×2 (02:54→10:35)
[2020-08-08 08:31] LABS: HCT 34.2 % (34.0-46.0); HGB 11.4 gm/dL (11.4-16.0); MCH 29.6 pg (25.0-35.0); MCHC 33.2 g/dL (31.0-37.0); MCV 89.1 fL (80.0-100.0); Mean Platelet Volume 8.1; Platelet Count 150 k/uL (150-450); RBC 3.84 m/uL (3.80-5.40); RDW 12.9 % (11.5-15.5); WBC 5.9 k/uL (3.8-10.6)
--- NOTE | 2020-08-08 08:38 | P.PN ---
Subjective Progress Note Date: 08/08/20 Principal diagnosis: 6 week incomplete Patient continues to have some bleeding though not significant. She does report continued pain and is requesting pain medications at the 6 hour interval allowed. She has not seen tissue passed. Objective - Vital Signs Vital signs: Vital Signs Temp 97.6 F 08/08/20 08:00 Pulse 87 08/08/20 08:00 Resp 16 08/08/20 08:00 BP 112/77 08/08/20 08:00 Pulse Ox 100 08/08/20 08:00 Intake & Output 08/07/20 08/08/20 08/08/20 18:59 06:59 18:59 Intake Total 1000 Balance 1000 Weight 56.699 kg 56.699 kg Intake: IV 1000 Other: # Voids 1 - Exam In general, is a well-developed, well-nourished white female in no acute distress. Her heart has a regular rhythm and rate without murmur. Her lungs clear to auscultation bilaterally in all pulido. Her abdomen is nondistended has normal active bowel sounds is soft nontender without masses. Her extremities are without any cyanosis, clubbing, or edema and are nontender to palpation bilaterally. - Labs CBC & Chem 7: 08/08/20 07:39 08/07/20 15:34 Labs: Abnormal Lab Results - Last 24 Hours (Table) 08/07/20 08/07/20 08/07/20 Range/Units 15:34 16:11 19:25 Lymphocytes # 0.9 L (1.0-4.8) k/uL Sodium 135 L (137-145) mmol/L AST 63 H (14-36) U/L ALT 123 H (4-34) U/L Ur Amphetamines Screen Detected H (NotDetected) U Methamphetamines Scrn Detected H (NotDetected) U Marijuana (THC) Screen Detected H (NotDetected) Microbiology - Last 24 Hours (Table) 08/07/20 15:34 Genital Culture - Preliminary Vaginal Assessment and Plan (1) Incomplete miscarriage Current Visit: Yes Status: Acute Code(s): O03.4 - INCOMPLETE SPONTANEOUS WITHOUT COMPLICATION SNOMED Code(s): 425953201 Plan: The operating room is aware of the case to be scheduled and is searching for time to have the case done. In the meantime, the patient remains with nothing by mouth and IV hydration. The plan would be to discharge her home immediately following procedure assuming no complications.
[2020-08-08] MEDS ORDERED: IV FLUID CONTINUATION 1,000 ML IV ONE (11:36)
[2020-08-08] MEDS ORDERED: ONDANSETRON 4 MG/2 ML VIAL ONE (11:52)
[2020-08-08] MEDS ORDERED: ONDANSETRON 4 MG/2 ML VIAL IVP ONE (11:55)
[2020-08-08] MEDS ORDERED: DEXAMETHASONE SOD PHOSPHATE 10 MG/ML 1 ML VIAL IV ONE (11:55)
[2020-08-08] MEDS ORDERED: MIDAZOLAM 2 MG/2 ML VIAL ONE (12:44)
[2020-08-08] MEDS ORDERED: fentaNYL (PF) 50 MCG/ML 2 ML AMP ONE (12:44)
[2020-08-08] MEDS ORDERED: PROPOFOL 10 MG/ML 20 ML VIAL IV ONE (12:44)
[2020-08-08] MEDS ORDERED: KETOROLAC 15 MG/ML 1 ML VIAL ONE (12:44)
[2020-08-08] MEDS ORDERED: LIDOCAINE 1% INJ 10MG/ML (20 ML MDV) ONE (12:44)
[2020-08-08] MEDS ORDERED: KETOROLAC 15 MG/ML 1 ML VIAL IVP PRN (13:10)
[2020-08-08] MEDS ORDERED: Acetaminophen-Codeine 300-30mg TAB PO PRN ×2 (13:10)
[2020-08-08] MEDS ORDERED: METOCLOPRAMIDE 5 MG/ML 2 ML VIAL IVP PRN (13:10)
[2020-08-08] MEDS ORDERED: IBUPROFEN 600 MG TAB PO PRN (13:10)
[2020-08-08] MEDS ORDERED: ONDANSETRON 4 MG/2 ML VIAL IVP PRN (13:10)
[2020-08-08] MEDS ORDERED: diphenhydrAMINE 50 MG/ML 1 ML VIAL IVP PRN (13:10)
[2020-08-08] MEDS ORDERED: SIMETHICONE 80 MG CHEWABLE PO PRN (13:10)
--- NOTE | 2020-08-08 13:17 | P.OP ---
Date of Procedure: 08/08/20 Preoperative Diagnosis: #1. 6 weeks missed or incomplete #2. Vaginal bleeding Postoperative Diagnosis: Same Procedure(s) Performed: #1. Dilation and aspiration curettage Anesthesia: other (Gen. by face mask) Surgeon: Beto Phelan Estimated Blood Loss (ml): 100 IV fluids (ml): 300 Urine output (ml): 800 Pathology: other (Intrauterine contents) Condition: stable Disposition: PACU Operative Findings: Preoperative pelvic examination demonstrated a roughly 6-7 week midplane normal shaped uterus with normal adnexa bilaterally. The cervix was dilated to approximately 1 cm. There was a moderate amount of clot in the vault with no apparent tissue. The uterus sounded to approximately 8 cm. #8 curved aspiration curet was utilized and tissue was clearly seen within the tubing and at the tip of the tubing where the entire . To be removed intact and was removed from the suction but sent with the specimen. The typical gritty texture was noted with sharp curettage. Description of Procedure: The patient was prepped and draped in usual fashion after general anesthesia was administered by the anesthesiologist. A weighted speculum was placed and the bladder was drained of approximately 800 mL of clear waldo urine. The anterior lip of the cervix was grasped with a single-tooth tenaculum and the uterus sounded to approximately 8 cm as noted above. The cervix Basil admitted the largest dilator. A #8 curved aspiration curet was placed to the fundus and suction applied. Thorough and circumferential aspiration curettage was carried out from the fundus to the cervix at which time there was some tissue seen in the tubing but, upon removal of the curet from the cervix, the entire including placental tissue and intact gestational sac appeared to be suctioned to the tip of the curet. She was removed manually and sent with the specimen. Another pass was made with the aspiration curet at which time no further tissue was noted. It was set aside in favor of a medium sharp curette which was utilized to thoroughly and circumferentially perform sharp curettage which demonstrated the typical gritty texture and no evidence of any tissue. One last pass was made with the aspiration curet with no further tissue noted. All instrumentation was removed. One site of the tenaculum was noted to be bleeding and made hemostatic with pressure. There was no significant ongoing bleeding from the cervix. After pressure, all instrumentation was removed with no ongoing bleeding. The estimated blood loss was approximately 100 mL or less. There are no complications. All sponge, instrument, and needle counts were correct. The patient tolerated the procedure well and proceeded to the recovery room in stable condition.
--- NOTE | 2020-08-08 13:19 | P.DS ---
Providers Date of admission: 08/07/20 17:13 Expected date of discharge: 08/08/20 Attending physician: Beto Phelan Primary care physician: Stated None - Discharge Diagnosis(es) (1) Incomplete miscarriage Current Visit: Yes Status: Acute Hospital Course: The patient is a 30-year-old 3 para 2 admitted through the emergency room with her previously made diagnosis of a 6 week missed . She presented to the ER at this time with ongoing vaginal bleeding as well as reported severe pain. She was hemodynamically stable and therefore was admitted to the hospital to undergo dilation and curettage OR was available rather than after hours. She underwent adequate IV pain control and had no significant ongoing vaginal bleeding. She was ultimately taken to the operating room where she underwent dilation and aspiration curettage in an uncomplicated fashion with tissue clearly seen passing through the tubing. Following the procedure, she wa s deemed stable for discharge and discharged home on hospital day #2 to follow- up in the office in 2 weeks for a recheck. She is instructed to have nothing in the vagina for at least 2 weeks' time to include intercourse and to call for any significantly increased bleeding, pain, fever, or any also concerned her. She understood her instructions and agrees to follow up as noted above. Discharge m edications included only [id number] analgesic pain medications. The patient's blood type is Rh+. Procedures: #1. IV hydration #2. IV pain control #3. Dilation and aspiration curettage Patient Condition at Discharge: Stable Plan - Discharge Summary New Discharge Prescriptions: No Action No Known Home Medications Discharge Medication List No Known Home Medications 08/07/20 [History] Follow up Appointment(s)/Referral(s): Beto Phelan MD [STAFF PHYSICIAN] - 2 Weeks None,Stated [Primary Care Provider] - 1-2 days Discharge Disposition: HOME SELF-CARE
[2020-08-08 13:33] VITALS: RESP 16
[2020-08-08 15:19] VITALS: BP 105/64; PULSE 84; TEMP 97.2
[2020-08-09 15:40] LABS: C. trachomatis,PCR Negative (Neg,Equiv); Chlamydia trachomatis Source Vagina; N. gonorrhoeae,PCR Negative (Neg,Equiv); Neisseria Source Vagina
== END 2020-08-08 15:30 | disposition home or self-care (01) ==
LOC: EC 15:16 → 4FBP 17:13
PROVIDERS: ADMIT Obstetrics & Gynecology; ATTEND Obstetrics & Gynecology
DX: O03.4 Incomplete spontaneous abortion without complication (principal); O98.511 Other viral diseases complicating pregnancy, first trimester; B00.9 Herpesviral infection, unspecified; O99.331 Smoking (tobacco) complicating pregnancy, first trimester; F17.200 Nicotine dependence, unspecified, uncomplicated; O99.341 Other mental disorders complicating pregnancy, first trimester; F32.9 Major depressive disorder, single episode, unspecified; Z3A.01 Less than 8 weeks gestation of pregnancy; Z79.899 Other long term (current) drug therapy; Z98.890 Other specified postprocedural states; Z86.14 Personal history of Methicillin resistant Staphylococcus aureus infection; Z87.440 Personal history of urinary (tract) infections; Z79.891 Long term (current) use of opiate analgesic; Z80.9 Family history of malignant neoplasm, unspecified
CPT/HCPCS: 59812; 96374; 99285; 36415; 86900; 86901; 88305; 80053; 85025; 85027; 81025; 84702; 87808; 87491; 87591; 80306; 87070; 76801; G0378 ×2; J2250; J2270; J1100; J2405; J2001; J3010; J1885; J2704; J1170

== ENCOUNTER 2020-09-23 01:50 | Emergency (ER) | payer OTHER | END 2020-09-23 02:33 | disposition left against medical advice (07) | LOC: EC 01:50 | DX: Z53.21 Procedure and treatment not carried out due to patient leaving prior to being seen by health care provider (principal) | CPT/HCPCS: 99499 ==

== ENCOUNTER 2021-03-16 07:28 | Emergency (ER) | payer OTHER ==
[2021-03-16 07:34] VITALS: RESP 18; TEMP 97.8
[2021-03-16] MEDS ORDERED: LIDOCAINE 1% INJ 10MG/ML (20 ML MDV) SQ ONE (07:59)
[2021-03-16] MEDS ORDERED: SULFAMETHOX-TMP 800-160MG 1 EACH TAB PO STA (08:00)
[2021-03-16] MEDS ORDERED: CEPHALEXIN 500 MG CAP PO STA (08:00)
[2021-03-16 08:20] LABS: Basophils # (A) 0.1 k/uL (0-0.2); Basophils % (A) 1 %; Eosinophils # (A) 0.4 k/uL (0-0.7); Eosinophils % (A) 7 %; HCT 40.9 % (34.0-46.0); Lymphocytes # (A) 1.4 k/uL (1.0-4.8); Lymphocytes % (A) 24 %; MCHC 34.3 g/dL (31.0-37.0); MCV 87.4 fL (80.0-100.0); Mean Platelet Volume 8.5; Monocytes # (A) 0.3 k/uL (0-1.0); Monocytes % (A) 6 %; Neutrophils # (A) 3.3 k/uL (1.3-7.7); Neutrophils % (A) 60 %; Platelet Count 172 k/uL (150-450); RBC 4.68 m/uL (3.80-5.40); RDW 12.6 % (11.5-15.5); WBC 5.5 k/uL (3.8-10.6)
--- NOTE | 2021-03-16 08:28 | XR ---
EXAMINATION TYPE: XR chest 2V DATE OF EXAM: 03/16/2021 COMPARISON: NONE HISTORY: Shortness of breath. TECHNIQUE: Frontal and lateral views of the chest are obtained. FINDINGS: There is no focal air space opacity, pleural effusion, or pneumothorax seen. The cardiac silhouette size is within normal limits. The osseous structures are intact. Rounded 1 cm nodule overlying the breasts likely represents patient's nipples. IMPRESSION: No acute cardiopulmonary process.
[2021-03-16 08:36] LABS: D-Dimer 0.18 mg/L FEU (<0.60); INR 0.9 (<1.2); Partial Thromboplastin Time 25.3 sec (22.0-30.0)
[2021-03-16 08:37] LABS: ALT 19 U/L (4-34); AST 23 U/L (14-36); African American GFR (CKD) >90 (>60 ml/min/1.73 sqM); Albumin 4.3 g/dL (3.5-5.0); Alkaline Phosphatase 77 U/L (38-126); Anion Gap 5 mmol/L; Blood Urea Nitrogen 14 mg/dL (7-17); Calcium 9.3 mg/dL (8.4-10.2); Carbon Dioxide 29 mmol/L (22-30); Chloride 105 mmol/L (98-107); Glucose 102 mg/dL (74-99); Non-African American GFR(CKD) >90 (>60 ml/min/1.73 sqM); Potassium 4.5 mmol/L (3.5-5.1); Sodium 139 mmol/L (137-145); Total Bilirubin 0.5 mg/dL (0.2-1.3); Total Protein 7.5 g/dL (6.3-8.2)
[2021-03-16 08:49] LABS: Appearance,Urine Clear (Clear); Bilirubin,Urine Negative (Negative); Blood,Urine Negative (Negative); Color,Urine Yellow; Glucose,Urine (UA) Negative (Negative); Ketones,Urine Negative (Negative); Leukocyte Esterase,Urine Trace (Negative); Mucus,Urine Rare /hpf; Nitrite,Urine Negative (Negative); Protein,Urine Negative (Negative); RBC,Urine 2 /hpf (0-5); Specific Gravity,Urine 1.018 (1.001-1.035); Squamous Epithelial Cell,Urine <1 /hpf (0-4); Urobilinogen,Urine <2.0 mg/dL (<2.0); WBC,Urine 4 /hpf (0-5)
--- NOTE | 2021-03-16 08:59 | ED ---
Chest Pain HPI - General Chief Complaint: Chest Pain Stated Complaint: Chest Pain, Poss Spider bites Time Seen by Provider: 03/16/21 07:36 Source: patient Mode of arrival: ambulatory Limitations: no limitations - History of Present Illness Initial Comments: 31-year-old female who presents to the emergency department with reported chest pain. Patient states she has had pain for the past 3 days. At the beginning the pain was intermittent and is reproduced upon palpation and movement. Patient also had pain with deep inspiration. Reports that her symptoms became more constant as of today. She denies cough, fevers or chills. No previous history of cardiac or lung disease. Denies ripping or tearing sensation to her back. No history of drug use. Denies history of DVT or PE. No lower trauma edema. No syncopal episodes. Patient also complains of an abscess to the anterior portion of her neck. States that she pulled a hair out of it a couple days ago and a small pimple turned into a large abscess. Does admit to a history of abscesses before in the past which were MRSA positive. Patient had an abscess noted to her left ear several years ago which required drainage in inpatient hospitalization. She has been getting fairly drainage from the site. She has not been taking anything for pain control. No alleviating, precipitating or modifying factors - Related Data Previous Rx's Medication Instructions Recorded Cephalexin [Keflex] 500 mg PO Q6HR 1 Days #28 cap 03/16/21 Naproxen [Naprosyn] 500 mg PO Q12HR #30 tab 03/16/21 Sulfamethox-Tmp 800-160Mg [Bactrim 2 tab PO Q12HR #28 tab 03/16/21 DS 800-160 mg] Allergies Allergy/AdvReac Type Severity Reaction Status Date / Time No Known Allergies Allergy Verified 03/16/21 09:26 Review of Systems ROS Statement: Those systems with pertinent positive or pertinent negative responses have been documented in the HPI. ROS Other: All systems not noted in ROS Statement are negative. EKG Findings - EKG Comments: EKG Findings:: EKG done at 7:42 am demonstrates a normal sinus rhythm ventricular rate of 82. WY interval 126. QRS 94. QTC 418. Peak T waves in V2 through V4. EKG demonstrates normal sinus rhythm with a ventricular rate of 81. WY interval 134. QRS 90. QTC 434. No acute ST segment elevations or depressions Past Medical History Additional Past Medical History / Comment(s): Positive HSV Type 2, hx frequent UTI/kidney infection History of Any Multi-Drug Resistant Organisms: MRSA Date of last positivie culture/infection: 08/05/20 MDRO Source:: Nose Past Surgical History: Ear Surgery Additional Past Surgical History / Comment(s): Tubes in ears, I/D of abscess behind left ear, 6 teeth recently extracted Past Anesthesia/Blood Transfusion Reactions: No Reported Reaction Past Psychological History: Depression Smoking Status: Current every day smoker Past Alcohol Use History: None Reported Past Drug Use History: Marijuana - Past Family History Mother Family Medical History: Cancer, Hypertension General Exam Limitations: no limitations Course Vital Signs 03/16/21 03/16/21 07:29 09:52 Temperature 97.8 F Pulse Rate 96 84 Respiratory 18 18 Rate Blood Pressure 139/94 124/92 O2 Sat by Pulse 99 100 Oximetry Chest Pain MDM - MDM Upon arrival patient is placed in room 7. A thorough history and physical exam was performed. Laboratory studies were conducted and reviewed. D-dimer is negative. Troponin is negative. Patient demonstrates no acute cardiopulmonary process. Patient's abscess was incised and drained. Patient will be discharged home on Keflex and Bactrim. Patient is given follow-up information for Dr. Fox. She is also recommended to several family medicine doctors. Instructed to take the medications as directed and follow-up with them for definitive treatment. If she has any new or worsening symptoms return to the emergency room. Recommend echo and Holter monitoring. Patient was discharged in stable condition Disposition Clinical Impression: Chest pain, Abscess Disposition: HOME SELF-CARE Condition: Stable Instructions (If sedation given, give patient instructions): Chest Pain (ED), Abscess Incision and Drainage (ED) Additional Instructions: Please follow up with your PCP in 2-4 days. You should also see the surgeon for your abscess. Take the antibiotics as directed. Return to the ED for any new or worsening symptoms. I recommend you have an Echo and Holter monitoring Prescriptions: Sulfamethox-Tmp 800-160Mg [Bactrim DS 800-160 mg] 2 tab PO Q12HR #28 tab Cephalexin [Keflex] 500 mg PO Q6HR 1 Days #28 cap Naproxen [Naprosyn] 500 mg PO Q12HR #30 tab Is patient prescribed a controlled substance at d/c from ED?: No Referrals: Kim Salvador MD [STAFF PHYSICIAN] - 1-2 days Waqar Martinez [STAFF PHYSICIAN] - 1-2 days Saleem Brumfield MD [Medical Doctor] - 1-2 days Time of Disposition: 09:36
[2021-03-16] MEDS ORDERED: KETOROLAC 15 MG/ML 1 ML VIAL IVP STA (09:26)
[2021-03-16 09:53] VITALS: BP 124/92; PULSE 84
== END 2021-03-16 09:53 | disposition home or self-care (01) ==
LOC: EC 07:28
DX: R07.9 Chest pain, unspecified (principal); L02.11 Cutaneous abscess of neck; F32.9 Major depressive disorder, single episode, unspecified; F17.200 Nicotine dependence, unspecified, uncomplicated; F12.90 Cannabis use, unspecified, uncomplicated
CPT/HCPCS: 99285; 96372 ×2; 10060; 36415; 93005; 85379; 80053; 83735; 84484; 85025; 85610; 85730; 81001; 81025; 71046; J2001; J1885

== ENCOUNTER 2021-03-20 16:08 | Emergency (ER) | payer OTHER ==
[2021-03-20 16:29] LABS: Glucose,Whole Blood 93 mg/dL (75-99)
[2021-03-20 16:49] LABS: Basophils % (A) 1 %; Eosinophils # (A) 0.2 k/uL (0-0.7); Eosinophils % (A) 4 %; HCT 41.5 % (34.0-46.0); HGB 14.4 gm/dL (11.4-16.0); Lymphocytes % (A) 20 %; MCH 29.8 pg (25.0-35.0); MCHC 34.6 g/dL (31.0-37.0); MCV 86.3 fL (80.0-100.0); Mean Platelet Volume 8.5; Monocytes # (A) 0.3 k/uL (0-1.0); Monocytes % (A) 6 %; Neutrophils # (A) 3.3 k/uL (1.3-7.7); Neutrophils % (A) 68 %; Platelet Count 170 k/uL (150-450); RBC 4.81 m/uL (3.80-5.40); RDW 12.6 % (11.5-15.5); WBC 4.9 k/uL (3.8-10.6)
--- NOTE | 2021-03-20 16:51 | CT ---
EXAMINATION TYPE: CT brain wo con for TPA DATE OF EXAM: 03/20/2021 COMPARISON: None. HISTORY: Slurred speech, neuro deficit acute onset. CT DLP: 1055.8 mGycm. Automated Exposure Control for Dose Reduction was Utilized. TECHNIQUE: CT scan of the head is performed without contrast. FINDINGS: There is no acute intracranial hemorrhage, mass effect, or midline shift identified. The ventricles and sulci are within normal limits in size. Vanegas-white matter differentiation is maintain ed. The calvarium is intact. The globes are intact and the visualized sinuses are clear. IMPRESSION: No acute intracranial hemorrhage or midline shift is seen.
[2021-03-20 16:57] LABS: INR 0.9 (<1.2); Partial Thromboplastin Time 25.1 sec (22.0-30.0); Prothrombin Time 10.2 sec (9.0-12.0)
[2021-03-20 17:01] LABS: Potassium 4.1 mmol/L (3.5-5.1)
[2021-03-20] MEDS ORDERED: SODIUM CHLORIDE 0.9% 1,000 ML IV ONE (17:01)
[2021-03-20 17:02] LABS: ALT 16 U/L (4-34); AST 25 U/L (14-36); Acetaminophen <10.0 ug/mL; African American GFR (CKD) >90 (>60 ml/min/1.73 sqM); Albumin 4.4 g/dL (3.5-5.0); Alcohol <10 mg/dL; Alkaline Phosphatase 89 U/L (38-126); Anion Gap 9 mmol/L; Blood Urea Nitrogen 17 mg/dL (7-17); Calcium 9.8 mg/dL (8.4-10.2); Carbon Dioxide 24 mmol/L (22-30); Chloride 105 mmol/L (98-107); Glucose 95 mg/dL (74-99); Non-African American GFR(CKD) >90 (>60 ml/min/1.73 sqM); Salicylate <1.0 mg/dL; Sodium 138 mmol/L (137-145); Total Bilirubin 0.6 mg/dL (0.2-1.3); Total Protein 7.5 g/dL (6.3-8.2)
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
[2021-03-20 17:32] VITALS: BP 125/71; PULSE 85; RESP 12
--- NOTE | 2021-03-20 17:43 | CT ---
EXAMINATION TYPE: CT angio head neck DATE OF EXAM: 03/20/2021 HISTORY: Altered mental status COMPARISON: CT brain same date CT DLP: 388.5 mGycm. Automated Exposure Control for Dose Reduction was Utilized. TECHNIQUE: CTA scan of the neck is performed with IV Contrast, patient injected with 65 mL of Isovue 370, axial images are obtained, coronal and sagittal reformatted images are reviewed. Three-D recons tructed images are created on an independent workstation and reviewed. FINDINGS: Carotid/Vascular Structures: Transverse aorta, 3 super aortic branch vessels, vertebral arteries are patent. No evident stenosis by NASCET criteria of the proximal internal carotid arteries. There is no evident dissection, embolus. The [place] of [place] shows patent anterior posterior circulation. Other: IMPRESSION: No significant abnormality is seen.
--- NOTE | 2021-03-20 18:36 | XR ---
EXAMINATION TYPE: XR chest 2V DATE OF EXAM: 03/20/2021 COMPARISON: 03/16/2021 HISTORY: Altered mental status TECHNIQUE: Frontal and lateral views of the chest are obtained. FINDINGS: There is no focal air space opacity, pleural effusion, or pneumothorax seen. The cardiac silhouette size is within normal limits. There are overlying leads. The osseous structures are intac t. IMPRESSION: No acute cardiopulmonary process.
[2021-03-20] MEDS ORDERED: ASPIRIN 325 MG TAB PO STA (18:42)
[2021-03-20 18:54] LABS: Appearance,Urine Clear (Clear); Bilirubin,Urine Negative (Negative); Blood,Urine Trace (Negative); Color,Urine Yellow; Glucose,Urine (UA) Negative (Negative); Ketones,Urine Negative (Negative); Leukocyte Esterase,Urine Small (Negative); Mucus,Urine Rare /hpf; Nitrite,Urine Negative (Negative); PH, Urine 6.5 (5.0-8.0); Protein,Urine Trace (Negative); Squamous Epithelial Cell,Urine 6 /hpf (0-4); WBC,Urine 1 /hpf (0-5)
[2021-03-20 19:04] LABS: Amphetamine Screen,Urine Detected (NotDetected); Barbiturate Screen,Urine Not Detected (NotDetected); Benzodiazepines Screen,Urine Detected (NotDetected); Cocaine Screen,Urine Not Detected (NotDetected); Methadone Screen, Urine Not Detected (NotDetected); Opiate Screen,Urine Not Detected (NotDetected); Oxycodone Screen, Urine Not Detected (NotDetected); Phencyclidine Screen,Urine Not Detected (NotDetected); Tricyclic Antidepressant,Urine Detected (NotDetected); Urn Cannabinoid Scrn Detected (NotDetected)
[2021-03-20 19:07] LABS: Specific Gravity,Urine >1.050 (1.001-1.035)
== END 2021-03-20 22:16 | disposition left against medical advice (07) ==
LOC: EC 16:08
DX: F19.10 Other psychoactive substance abuse, uncomplicated (principal); F17.200 Nicotine dependence, unspecified, uncomplicated; Z53.29 Procedure and treatment not carried out because of patient's decision for other reasons
CPT/HCPCS: 36415; 93005; 80053; 83735; 84484; 85025; 85610; 85730; 81001; 81025; 80306; 80143; 80179; 71046; 70496; 70450; 70498; 99285; 96360; 96361; G0480; Q9967; 80320

== ENCOUNTER 2021-08-29 16:35 | Emergency (ER) | payer OTHER ==
[2021-08-29 16:43] VITALS: TEMP 98
[2021-08-29] MEDS ORDERED: SODIUM CHLORIDE 0.9% 1,000 ML IV STA (17:13)
[2021-08-29 17:15] LABS: Glucose,Whole Blood 105 mg/dL (75-99)
[2021-08-29] MEDS ORDERED: ACETAMINOPHEN TAB 325 MG TAB PO STA (17:20)
[2021-08-29] MEDS ORDERED: TOPICAL SKIN ADHESIVE 1 EACH AMP TOPICAL ONE (17:20)
--- NOTE | 2021-08-29 17:20 | ED ---
General Adult HPI - General Chief complaint: Syncope Stated complaint: 12wks Preg/Syncope/Facial Lac Time Seen by Provider: 08/29/21 16:55 Source: patient, RN notes reviewed, old records reviewed Mode of arrival: wheelchair Limitations: no limitations - History of Present Illness Initial comments: 31-year-old female patient presents to the emergency room after syncopal episode today. Patient states that she walked outside to her truck to get something to drink, she states she remembers getting really hot and starting to take her coat off and she passed out. She does not know how long she was out. Her boyfriend seen her fall. She states that she has chin pain and laceration. Left-sided facial pain and right knee pain with abrasions. She is 13 weeks . She says she has no abdominal pain or vaginal bleeding. States that she does not have any medical history and only takes vitamins. Tetanus shot is up-to-date. -: hour(s) (2) Location: face (chin), right, lower extremity (knee) Radiation: non-radiation Severity scale (1-10): 4 Quality: aching Consistency: constant Improves with: none Worsens with: movement Associated Symptoms: headaches Treatments Prior to Arrival: none - Related Data Home Medications Medication Instructions Recorded Confirmed [id number] Acid 1 cap PO DAILY 08/29/21 08/29/21 [-U Capsule (formulary)] Allergies Allergy/AdvReac Type Severity Reaction Status Date / Time No Known Allergies Allergy Verified 08/29/21 18:37 Review of Systems ROS Statement: Those systems with pertinent positive or pertinent negative responses have been documented in the HPI. ROS Other: All systems not noted in ROS Statement are negative. Past Medical History Additional Past Medical History / Comment(s): Positive HSV Type 2, hx frequent UTI/kidney infection History of Any Multi-Drug Resistant Organisms: MRSA Date of last positivie culture/infection: 08/05/20 MDRO Source:: Nose Past Surgical History: Ear Surgery Additional Past Surgical History / Comment(s): Tubes in ears, I/D of abscess behind left ear, 6 teeth recently extracted Past Anesthesia/Blood Transfusion Reactions: No Reported Reaction Past Psychological History: Depression Smoking Status: Current every day smoker Past Alcohol Use History: None Reported Past Drug Use History: Marijuana - Past Family History Mother Family Medical History: Cancer, Hypertension General Exam Limitations: no limitations General appearance: alert, in no apparent distress Head exam: Present: normocephalic, other (1 cm laceration to her chin) Eye exam: Present: normal appearance, PERRL, EOMI. Absent: scleral icterus, conjunctival injection, periorbital swelling Pupils: Present: normal accommodation ENT exam: Present: normal exam, normal oropharynx, mucous membranes moist, TM's normal bilaterally, normal external ear exam Neck exam: Present: normal inspection, full ROM. Absent: tenderness, meningismus, lymphadenopathy, thyromegaly Respiratory exam: Present: normal lung sounds bilaterally. Absent: respiratory distress, wheezes, rales, rhonchi, stridor, chest wall tenderness, accessory muscle use, decreased breath sounds Cardiovascular Exam: Present: regular rate, normal rhythm, normal heart sounds. Absent: systolic murmur, diastolic murmur, rubs, gallop, clicks GI/Abdominal exam: Present: soft, distended, normal bowel sounds. Absent: tenderness, guarding, rebound, rigid Extremities exam: Present: full ROM, normal capillary refill. Absent: pedal edema, calf tenderness Right Knee exam: Present: full ROM, tenderness, abrasion, ecchymosis, full knee extension. Absent: swelling, pain w/ pronation/supination, pain/laxity with valgus, pain/laxity with varus Neurovascular tendon exam: Absent: no vascular compromise, abnormal cap refill, extremity cold to touch Back exam: Present: normal inspection, full ROM. Absent: tenderness, CVA tenderness (R), CVA tenderness (L), rash noted Neurological exam: Present: alert, oriented X3, CN II-XII intact Expanded Patient oriented to: Present: person, place, time Speech: Present: fluid speech Cranial nerves: EOM's Intact: Normal, Gag Reflex: Normal, Tongue Deviation: Normal Motor strength exam: RUE: 5, LUE: 5, RLE: 5, LLE: 5 Eye Response: (4) open spontaneously Motor Response: (6) obeys commands Verbal Response: (5) oriented [place] Total: 15 Psychiatric exam: Present: normal affect, normal mood Skin exam: Present: warm, dry, intact, normal color. Absent: rash Course Vital Signs 08/29/21 08/29/21 08/29/21 16:38 17:00 17:29 Temperature 98.0 F Pulse Rate 98 78 84 Respiratory 16 20 16 Rate Blood Pressure 101/63 116/73 117/87 O2 Sat by Pulse 97 100 100 Oximetry 08/29/21 08/29/21 08/29/21 18:00 19:00 21:30 Temperature Pulse Rate 96 84 95 Respiratory 20 20 18 Rate Blood Pressure 123/72 117/75 107/64 O2 Sat by Pulse 100 99 98 Oximetry EKG Findings - EKG Results: EKG: sinus rhythm (Ventricular rate 91, LA interval 0.132, QRS 0.94, QTC 0.460) Procedures - Laceration Laceration #1 Consent Obtained: verbal consent Indication: laceration Site: face (chin) Size (cm): 1 Description: linear Depth: simple, single layer Anesthetic Used: lidocaine 1% Pre-repair: irrigated extensively Type of Sutures: nylon Size of Sutures: 5-0 Number of Sutures: 3 Technique: simple, interrupted Patient Tolerated Procedure: well Medical Decision Making - Medical Decision Making Ultrasound shows gestational age of 11 weeks 6 days there are tiny subchorionic hemorrhages. heart rate 149. Troponin is -0.012, normal sinus rhythm on EKG with no ST elevation. Blood glucose is 105 and electrolytes are unremarkable. There is no evidence of anemia or leukocytosis.. UA is clear with no evidence of infection. This is likely vasovagal episode. Patient is currently eating in the emergency room, no evidence of nausea, vomiting or abdominal pain. She denies any vaginal bleeding. Her blood type is B+. The laceration was closed with 3 sutures after copious irrigation. Bacitracin dres sings were placed at the nurse. She was tested to follow up with her GENERAL CLERK this week and her primary care doctor in 5 days for suture removal. Case discussed with Dr. Conley - Lab Data Result diagrams: 08/29/21 17:21 08/29/21 17:21 Lab Results 08/29/21 08/29/21 08/29/21 Range/Units 17:09 17:21 17:21 WBC 10.4 (3.8-10.6) k/uL RBC 4.75 (3.80-5.40) m/uL Hgb 14.5 (11.4-16.0) gm/dL Hct 42.6 (34.0-46.0) % MCV 89.8 (80.0-100.0) fL MCH 30.5 (25.0-35.0) pg MCHC 34.0 (31.0-37.0) g/dL RDW 12.5 (11.5-15.5) % Plt Count 158 (150-450) k/uL MPV 9.1 Neutrophils % 73 % Lymphocytes % 16 % Monocytes % 5 % Eosinophils % 5 % Basophils % 1 % Neutrophils # 7.6 (1.3-7.7) k/uL Lymphocytes # 1.7 (1.0-4.8) k/uL Monocytes # 0.5 (0-1.0) k/uL Eosinophils # 0.5 (0-0.7) k/uL Basophils # 0.1 (0-0.2) k/uL Sodium (137-145) mmol/L Potassium (3.5-5.1) mmol/L Chloride (98-107) mmol/L Carbon Dioxide (22-30) mmol/L Anion Gap mmol/L BUN (7-17) mg/dL Creatinine (0.52-1.04) mg/dL Est GFR (CKD-EPI)AfAm (>60 ml/min/1.73 sqM) Est GFR (CKD-EPI)NonAf (>60 ml/min/1.73 sqM) Glucose (74-99) mg/dL POC Glucose (mg/dL) 105 H (75-99) mg/dL POC Glu Public Health Microbiologist ID Fetterly, Afia Calcium (8.4-10.2) mg/dL Magnesium (1.6-2.3) mg/dL Total Bilirubin (0.2-1.3) mg/dL AST (14-36) U/L ALT (4-34) U/L Alkaline Phosphatase (38-126) U/L Troponin I (0.000-0.034) ng/mL Total Protein (6.3-8.2) g/dL Albumin (3.5-5.0) g/dL Urine Color Light Yellow Urine Appearance Clear (Clear) Urine pH 6.5 (5.0-8.0) Ur Specific [place] 1.006 (1.001-1.035) Urine Protein Negative (Negative) Urine Glucose (UA) Negative (Negative) Urine Ketones Negative (Negative) Urine Blood Negative (Negative) Urine Nitrite Negative (Negative) Urine Bilirubin Negative (Negative) Urine Urobilinogen <2.0 (<2.0) mg/dL Ur Leukocyte Esterase Negative (Negative) 08/29/21 08/29/21 Range/Units 17:21 17:21 WBC (3.8-10.6) k/uL RBC (3.80-5.40) m/uL Hgb (11.4-16.0) gm/dL Hct (34.0-46.0) % MCV (80.0-100.0) fL MCH (25.0-35.0) pg MCHC (31.0-37.0) g/dL RDW (11.5-15.5) % Plt Count (150-450) k/uL MPV Neutrophils % % Lymphocytes % % Monocytes % % Eosinophils % % Basophils % % Neutrophils # (1.3-7.7) k/uL Lymphocytes # (1.0-4.8) k/uL Monocytes # (0-1.0) k/uL Eosinophils # (0-0.7) k/uL Basophils # (0-0.2) k/uL Sodium 135 L (137-145) mmol/L Potassium 3.6 (3.5-5.1) mmol/L Chloride 102 (98-107) mmol/L Carbon Dioxide 24 (22-30) mmol/L Anion Gap 9 mmol/L BUN 10 (7-17) mg/dL Creatinine 0.53 (0.52-1.04) mg/dL Est GFR (CKD-EPI)AfAm >90 (>60 ml/min/1.73 sqM) Est GFR (CKD-EPI)NonAf >90 (>60 ml/min/1.73 sqM) Glucose 100 H (74-99) mg/dL POC Glucose (mg/dL) (75-99) mg/dL POC Glu Public Health Microbiologist ID Calcium 9.5 (8.4-10.2) mg/dL Magnesium 1.9 (1.6-2.3) mg/dL Total Bilirubin 0.2 (0.2-1.3) mg/dL AST 33 (14-36) U/L ALT 59 H (4-34) U/L Alkaline Phosphatase 74 (38-126) U/L Troponin I <0.012 (0.000-0.034) ng/mL Total Protein 7.3 (6.3-8.2) g/dL Albumin 4.2 (3.5-5.0) g/dL Urine Color Urine Appearance (Clear) Urine pH (5.0-8.0) Ur Specific [place] (1.001-1.035) Urine Protein (Negative) Urine Glucose (UA) (Negative) Urine Ketones (Negative) Urine Blood (Negative) Urine Nitrite (Negative) Urine Bilirubin (Negative) Urine Urobilinogen (<2.0) mg/dL Ur Leukocyte Esterase (Negative) Disposition Clinical Impression: Syncope, Facial laceration Disposition: HOME SELF-CARE Condition: Good Additional Instructions: Sutures to be removed in 5 days. Use mild soap and water to clean your abrasions once a day and apply bacitracin ointment to abrasions. Follow-up with the primary care doctor in 1 week. Follow-up with her GENERAL CLERK this week. Return to the emergency room with any new or worsening symptoms including abdominal pain or vaginal bleeding, or signs of infection including increased redness, pain or drainage from wound. Is patient prescribed a controlled substance at d/c from ED?: No Referrals: None,Stated [Primary Care Provider] - 1-2 days Time of Disposition: 20:54
[2021-08-29 17:34] LABS: Basophils # (A) 0.1 k/uL (0-0.2); Basophils % (A) 1 %; Eosinophils # (A) 0.5 k/uL (0-0.7); Eosinophils % (A) 5 %; HCT 42.6 % (34.0-46.0); HGB 14.5 gm/dL (11.4-16.0); Lymphocytes # (A) 1.7 k/uL (1.0-4.8); Lymphocytes % (A) 16 %; MCH 30.5 pg (25.0-35.0); MCV 89.8 fL (80.0-100.0); Mean Platelet Volume 9.1; Monocytes # (A) 0.5 k/uL (0-1.0); Monocytes % (A) 5 %; Neutrophils # (A) 7.6 k/uL (1.3-7.7); Neutrophils % (A) 73 %; Platelet Count 158 k/uL (150-450); RBC 4.75 m/uL (3.80-5.40); RDW 12.5 % (11.5-15.5); WBC 10.4 k/uL (3.8-10.6)
[2021-08-29 17:42] LABS: ALT 59 U/L (4-34); AST 33 U/L (14-36); African American GFR (CKD) >90 (>60 ml/min/1.73 sqM); Albumin 4.2 g/dL (3.5-5.0); Alkaline Phosphatase 74 U/L (38-126); Anion Gap 9 mmol/L; Blood Urea Nitrogen 10 mg/dL (7-17); Calcium 9.5 mg/dL (8.4-10.2); Carbon Dioxide 24 mmol/L (22-30); Chloride 102 mmol/L (98-107); Glucose 100 mg/dL (74-99); Magnesium 1.9 mg/dL (1.6-2.3); Non-African American GFR(CKD) >90 (>60 ml/min/1.73 sqM); Potassium 3.6 mmol/L (3.5-5.1); Sodium 135 mmol/L (137-145); Total Bilirubin 0.2 mg/dL (0.2-1.3); Total Protein 7.3 g/dL (6.3-8.2)
[2021-08-29] MEDS ORDERED: LIDOCAINE-PRILOCAINE 2.5-2.5% CREAM 5 GM TUBE TOPICAL STA (18:44)
--- NOTE | 2021-08-29 18:51 | US ---
EXAMINATION TYPE: Transabdominal DATE OF EXAM: 08/29/2021 6:20 PM COMPARISON: NONE CLINICAL HISTORY: fall. Hx 1 miscarriage, D and C. . EXAM PERFORMED: Transabdominal (TA) EXAM MEASUREMENTS: GESTATIONAL AGE / DATING Physician Established: Unknown per patient. Dates by LMP: Unknown. Dates by First Scan: This is first scan. Dates by Current Scan for: (11 weeks/6 days) EDC: 03/14/2022 MATERNAL ANATOMY Uterus: 11.9 x 7.3 x 5.7 cm. Anteverted. Right Ovary: 3.2 x 2.3 x 1.9 cm. Follicles seen. Left Ovary: 4.3 x 2.9 x 3.0 cm. Appears enlarged versus measuring upper limits of normal. Complex are a seen: 2.6 x 1.6 x 2.3 cm. Post CDS / Adnexa: Appear wnl. Presence of free fluid: Fluid seen in CDS: 1.5 x 1.5 x 0.8 cm. Presence of corpus luteal cyst: Complex area seen within left ovary as mentioned above: 2.6 x 1.6 x 2 .3 cm. Presence of subchorionic bleed: Hypoechoic area seen inferior to the gestational sac: 0.5 x 1.0 x 1.5 cm. Hypoechoic area seen to the left of the gestational sac: 0.5 x 1.0 x 1.6 cm. GESTATION / SURVEY CRL: 5.12 cm. (11 weeks/6 days) Yolk Sac (normal less than 6mm): Not visualized. Heart Rate: 149 bpm Rhythm: Normal IUP: Viable IUP Nuchal Translucency 10-14wks (normal less than 3mm): Not well visualized. Date of LMP: Unknown per patient. Beta HcG (if available): Not available. IMPRESSION: The ultrasound gestational age is 11 weeks and 6 days. There are probably tiny subchorionic hemorrhag es. No free fluid.
[2021-08-29 19:48] LABS: Appearance,Urine Clear (Clear); Bilirubin,Urine Negative (Negative); Blood,Urine Negative (Negative); Color,Urine Light Yellow; Glucose,Urine (UA) Negative (Negative); Ketones,Urine Negative (Negative); Leukocyte Esterase,Urine Negative (Negative); Nitrite,Urine Negative (Negative); PH, Urine 6.5 (5.0-8.0); Protein,Urine Negative (Negative); Specific Gravity,Urine 1.006 (1.001-1.035); Urobilinogen,Urine <2.0 mg/dL (<2.0)
[2021-08-29] MEDS ORDERED: LIDOCAINE 1% INJ 10MG/ML (20 ML MDV) SQ ONE (20:22)
[2021-08-29] MEDS ORDERED: BACITRACIN OINT 1 EACH PACKET TOPICAL ONE (20:59)
[2021-08-29 21:34] VITALS: BP 107/64; PULSE 95; RESP 18
== END 2021-08-29 21:30 | disposition home or self-care (01) ==
LOC: EC 16:35
DX: O9A.211 Injury, poisoning and certain other consequences of external causes complicating pregnancy, first trimester (principal); S01.81XA Laceration without foreign body of other part of head, initial encounter; S80.01XA Contusion of right knee, initial encounter; O26.891 Other specified pregnancy related conditions, first trimester; R55 Syncope and collapse; O99.331 Smoking (tobacco) complicating pregnancy, first trimester; O99.321 Drug use complicating pregnancy, first trimester; F17.200 Nicotine dependence, unspecified, uncomplicated; F12.90 Cannabis use, unspecified, uncomplicated; Z3A.11 11 weeks gestation of pregnancy; W18.39XA Other fall on same level, initial encounter
CPT/HCPCS: 36415; 93005; 80053; 83735; 84484; 85025; 81003; 76801; 99284; 96360; 12011; J2001

== ENCOUNTER 2021-12-15 15:17 | Outpatient (CLI) | payer OTHER ==
[2021-12-15 19:04] VITALS: BP 118/70; PULSE 92; RESP 16; TEMP 97.4
--- NOTE | 2021-12-27 07:23 | P.MSEPDOC ---
Presenting Problems - Arrival Data Date of Arrival on Unit: 12/15/21 Time of Arrival on Unit: 15:17 Mode of Transport: Ambulatory - Complaint OB-Reason for Admission/Chief Complaint: Other Comment: pt is a pt of 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 started having cramping that comes and goes and her underware are more wet than usual. Denies large gush or wearing a pad or pantyliner. Underware appear dry at this time. States all of this started arond 245 Medical History - Information : 4 Para: 2 Term: 2 : 0 Abortions: Spontaneous or Elective: 1 Number of Living Children: 2 - Gestational Age Gestational Age by DIEGO (wks/days): 27 Weeks and 2 Days - History Complications: Smoker, Hx. Substance Abuse Comment: UDS from 03/24 pos meth amphet, amphet, benzos and THC. pt states quit all drugs except THC and nicotine 5 months ago Review of Systems - Review of Systems Constitutional: No problems Breast: No problems ENT: No problems Cardiovascular: No problems Respiratory: No problems Gastrointestinal: No problems Genitourinary: No problems Musculoskeletal: No problems Neurological: No problems Skin: No problems Vital Signs - Temperature Temperature: 97.4 F Temperature Source: Temporal Artery Scan - Pulse Right Pulse Rate: 92 Pulse Assessment Method: Pulse Oximetry - Respirations Respiratory Rate: 16 Oxygen Delivery Method: Room Air O2 Sat by Pulse Oximetry: 97 - Blood Pressure Right Arm Blood Pressure: 118/70 Blood Pressure Mean: 86 Blood Pressure Source: Automatic Cuff Medical Screen Scoring - Uterine Contractions Frequency From (mins): 0 Frequency To (mins): 0 Duration From (seconds): 0 Duration To (seconds): 0 Intensity: Absent Resting: Soft to palpation - Assessment - Baby A Heart Rate - NICHD Category: Category I (Normal) Physician Notification - Physician Notified Physician Notified Date: 12/15/21 Physician Notified Time: 16:53 Physician: Dr Montalvo New Order Received: Yes (discharge) - Notification Comment Comment: Dr Montalvo in department. discussed pt's reason for visit, assessment, neg. amnisure. order received for discharge. also noted pt's labss from March 2021 had positive drug screen for multiple. Should get UDS if pt presents to us again for care. pt states is unable to get urine spec at this time Maternal Triage Index - Maternal Triage Index Presenting for scheduled procedure w/no complaint: No - Stat/Priority 1 Stat Priority 1: No - Urgent/Priority 2 Urgent Priority 2: No - Prompt/Priority 3 Prompt Priority 3: No - Non-Urgent/Priority 4 Non-Urgent Priority 4: Yes Criteria Met for Priority 4: Comment: pt is a pt of 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 started having cramping that comes and goes and her underware are more wet than usual. Deniew large gush or wearing a pad or pantyliner. Underware appear dry at this time. States all of this started arond 245 - Scheduled/Requesting Priority 5 Scheduled/Requesting Priority 5: No Disposition - Disposition OB Disposition: Discharge to home Discharge Date: 12/15/21 Discharge Time: 16:55 I agree with the RN Medical Screening Exam: Yes Case reviewed; plan agreed upon as documented in EMR&OBIX.: Yes Diagnosis: FALSE LABOR BEFORE 37 COMPLETED WEEKS OF GEST, THIRD TRI
== END 2021-12-15 16:55 | disposition home or self-care (01) ==
LOC: FBPOP 15:17
PROVIDERS: ATTEND Obstetrics & Gynecology
DX: O47.02 False labor before 37 completed weeks of gestation, second trimester (principal); O99.322 Drug use complicating pregnancy, second trimester; O99.332 Smoking (tobacco) complicating pregnancy, second trimester; F17.200 Nicotine dependence, unspecified, uncomplicated; F12.90 Cannabis use, unspecified, uncomplicated; Z3A.27 27 weeks gestation of pregnancy
CPT/HCPCS: 84112; G0463; 99213

== ENCOUNTER 2022-01-15 16:13 | Emergency (ER) | payer OTHER ==
[2022-01-15] MEDS ORDERED: ACETAMINOPHEN TAB 500 MG TAB PO STA (19:13)
[2022-01-15] MEDS ORDERED: IPRATROPIUM-ALBUTEROL 3 ML NEB INHALATION STA (19:13)
--- NOTE | 2022-01-15 19:23 | ED ---
URI HPI - General Chief Complaint: Upper Respiratory Infection Stated Complaint: chest congestion, sinus problem Time Seen by Provider: 01/15/22 19:05 Source: patient, RN notes reviewed Mode of arrival: ambulatory Limitations: no limitations - History of Present Illness Initial Comments: This is a pleasant 31-year-old female who is 30 weeks . She presents to the emergency room today complaining of a cough and runny nose for the past few days. She states it got worse today. Symptoms actually started yesterday. Has no significant past medical history. Patient states she has no problems with her abdomen. No vaginal bleeding or leakage. Denies any abdominal pain. Can ascertain movement. No known fever. Patient states she is coughing up some green sputum which seems to be worse in the morning. Note that the patient still smoking during this . History of lung problems or asthma. No ill contacts but the patient does work at [employer]. No headache, no fever or chills, no changes in vision or hearing, no sore throat or difficulty with speech, no neck pain, POSITIVE for cough, no chest pain or shortness of breath, no abdominal pain, no nausea or vomiting, no changes in urination or bowel movements, no numbness or tingling, no extremity pain, no skin rashes or lesions. MD Complaint: cough, rhinorrhea, nasal congestion - Related Data Home Medications Medication Instructions Recorded Confirmed Hcd-Inum-Stgzw Acid 1 cap PO DAILY 08/29/21 01/15/22 [-U Capsule (formulary)] Previous Rx's Medication Instructions Recorded Acetaminophen [Tylenol] 500 mg PO Q4-6H PRN #24 tab 01/15/22 Albuterol Sulfate [Albuterol 2 puff PO Q6H PRN #8.5 gm 01/15/22 Sulfate Hfa] predniSONE 50 mg PO DAILY #5 tab 01/15/22 Allergies Allergy/AdvReac Type Severity Reaction Status Date / Time No Known Allergies Allergy Verified 01/15/22 19:52 Review of Systems ROS Statement: Those systems with pertinent positive or pertinent negative responses have been documented in the HPI. ROS Other: All systems not noted in ROS Statement are negative. Past Medical History Additional Past Medical History / Comment(s): Positive HSV Type 2, hx frequent UTI/kidney infection History of Any Multi-Drug Resistant Organisms: None Reported, MRSA Date of last positivie culture/infection: 08/05/20 MDRO Source:: Nose Past Surgical History: Ear Surgery Additional Past Surgical History / Comment(s): Tubes in ears, I/D of abscess behind left ear, 6 teeth recently extracted Past Anesthesia/Blood Transfusion Reactions: No Reported Reaction Past Psychological History: Depression Smoking Status: Current every day smoker Past Alcohol Use History: None Reported Past Drug Use History: None Reported - Past Family History Mother Family Medical History: Cancer, Hypertension General Exam - General Exam Comments Initial Comments: Well-developed, well-nourished 31-year-old female in no acute distress. Patient does not appear to be ill or toxic. There is no respiratory distress. No tachypnea. No increased work of breathing. Limitations: no limitations General appearance: alert, in no apparent distress Head exam: Present: atraumatic, normocephalic, normal inspection Eye exam: Present: normal appearance, PERRL, EOMI. Absent: scleral icterus, conjunctival injection, periorbital swelling ENT exam: Present: normal exam, mucous membranes moist, TM's normal bilaterally, normal external ear exam Expanded Mouth exam: Present: normal external inspection. Absent: drooling, trismus, muffled voice, tongue normal, tongue elevation Teeth exam: Present: normal inspection. Absent: dental caries Throat exam: normal inspection. negative: tonsillar erythema, tonsillomegaly, tonsillar exudate, R peritonsillar mass, L peritonsillar mass Neck exam: Present: normal inspection, full ROM. Absent: tenderness, meningismus, lymphadenopathy Respiratory exam: Present: normal lung sounds bilaterally, wheezes, rhonchi, other (Patient does have scant expiratory wheezing with scattered rhonchi. Adventitious breath sounds are bilateral.). Absent: respiratory distress, rales, stridor, chest wall tenderness, accessory muscle use, decreased breath sounds, prolonged expiratory Cardiovascular Exam: Present: regular rate, normal rhythm, normal heart sounds. Absent: tachycardia (No tachycardia as I'm seeing the patient. Heart rate is 92.), systolic murmur, diastolic murmur, rubs, gallop, clicks GI/Abdominal exam: Present: soft, normal bowel sounds. Absent: distended, tenderness, guarding, rebound, rigid Extremities exam: Present: normal inspection, full ROM, normal capillary refill. Absent: tenderness, pedal edema, joint swelling, calf tenderness Back exam: Present: normal inspection Neurological exam: Present: alert, oriented X3, CN II-XII intact Psychiatric exam: Present: normal affect, normal mood Skin exam: Present: warm, dry, intact, normal color. Absent: rash Course Vital Signs 01/15/22 17:19 Temperature 98.4 F Pulse Rate 102 H Respiratory 16 Rate Blood Pressure 112/66 O2 Sat by Pulse 98 Oximetry - Reevaluation(s) Reevaluation #1: 01/15/22 20:15 Medical record is reviewed Symptoms are improved here in the emergency department Patient is informed of results and questions answered Patient in no distress Medical Decision Making - Medical Decision Making Impression presents with symptomology most consistent with an upper respiratory infection. Clear runny nose. Mild wheezing. Patient is smoking cigarettes. Patient states she has previously used an inhaler but has no formal diagnosis of asthma or COPD. Going to treat the patient with prednisone and a DuoNeb treatment. We did discuss pros and cons of chest x-ray. Patient adding that she thinks she may have had a fever earlier. Patient's also had a productive cough of green sputum. We will get a chest x-ray to rule out lobar pneumonia. We did discuss pros were scones, radiation exposure to the 30 week gestation infant. X-ray was ordered through shared decision-making. Discussed the possibility of other etiologies to include bacterial pneumonia, pneumothorax, pulmonary embolism. Given the patient's presentation with out evidence of increased work of breathing or tachypnea, no pleuritic pain. This is not consistent with clinical picture of more severe disease such as pulmonary embolism. Patient was told to return to the ER for any signs or symptoms worsen. Told to return immediately if any other problems arise. All questions answered. Tr eatment plan discussed. Patient in agreement Every effort has been made to ensure accuracy of this dictation. However, due to the limitations of electronic medical records and dictation devices, errors in charting still occur. The case was discussed in detail with ED attending physician. Presentation, findings, treatment plan discussed in detail. Patient will need to go to mother-baby for evaluation of the . - Radiology Data Radiology results: report reviewed (No acute findings as read by radiology. I did review the study.), image reviewed Disposition Clinical Impression: Cigarette smoker, Bronchospasm with bronchitis, acute, Acute viral bronchitis Disposition: HOME SELF-CARE Condition: Good Instructions (If sedation given, give patient instructions): How to Stop Smoking (ED), Acute Bronchitis (ED), Wheezing (ED) Additional Instructions: Follow-up with your regular physician as directed. Return to the ER immediately if any symptoms worsen, new symptoms arise, or any other problems develop. Proceed to labor and delivery for evaluation of your . Prescriptions: Albuterol Sulfate [Albuterol Sulfate Hfa] 2 puff PO Q6H PRN #8.5 gm PRN Reason: Wheezing predniSONE 50 mg PO DAILY #5 tab Acetaminophen [Tylenol] 500 mg PO Q4-6H PRN #24 tab PRN Reason: Pain Is patient prescribed a controlled substance at d/c from ED?: No Referrals: None,Stated [Primary Care Provider] - 1-2 days
--- NOTE | 2022-01-15 20:02 | XR ---
EXAMINATION TYPE: XR chest 2V DATE OF EXAM: 01/15/2022 COMPARISON: 03/20/2021 HISTORY: Altered mental status TECHNIQUE: FINDINGS: Heart and mediastinum are normal. Lungs are clear. Diaphragm is normal. Bony thorax appears normal. The pulmonary vascularity is normal. IMPRESSION: Normal chest. No change.
[2022-01-15 20:51] VITALS: BP 120/76; RESP 18; TEMP 97.8
[2022-01-15 20:54] VITALS: PULSE 100
== END 2022-01-15 20:50 | disposition home or self-care (01) ==
LOC: EC 16:13
DX: O99.513 Diseases of the respiratory system complicating pregnancy, third trimester (principal); J20.8 Acute bronchitis due to other specified organisms; O99.333 Smoking (tobacco) complicating pregnancy, third trimester; F17.210 Nicotine dependence, cigarettes, uncomplicated; Z20.822 Contact with and (suspected) exposure to COVID-19; Z3A.30 30 weeks gestation of pregnancy
CPT/HCPCS: 71046; 87635; 94640; 99283

== ENCOUNTER 2022-01-20 11:55 | Emergency (ER) | payer OTHER ==
[2022-01-20 13:39] VITALS: RESP 14; TEMP 97.9
--- NOTE | 2022-01-20 14:28 | XR ---
EXAMINATION TYPE: XR chest 2V DATE OF EXAM: 01/20/2022 COMPARISON: Chest x-ray 5 days ago. HISTORY: Shortness of breath and chest pain. Third trimester . TECHNIQUE: Frontal and lateral views of the chest are obtained. FINDINGS: There is no suspicious focal air space opacity, pleural effusion, or pneumothorax seen. T he cardiac silhouette size is stable and within normal limits. The osseous structures are intact. IMPRESSION: No acute process. No significant change from prior.
--- NOTE | 2022-01-20 14:53 | ED ---
Chest Pain HPI - General Chief Complaint: Chest Pain Stated Complaint: chest pain,diff breathing,stomach pain 30 wks pg Time Seen by Provider: 01/20/22 13:29 Source: patient, RN notes reviewed Mode of arrival: ambulatory Limitations: no limitations - History of Present Illness Initial Comments: 31-year-old female presents with concerns complaint of cough congestion shortness of breath. Patient issues in a couple days ago for similar complaints. She states she has no right-sided chest pain worse with walking, deep inspiration. Patient does admit that she has had a cough, is a smoker. No history of asthma. Patient states she's been no reported fever or chills. Patient states that the coughing is making her abdomen hurt. She is 30 weeks . She did contact her [employer] who recommended coming emergency department. Denies any leg pain or leg swelling no history DVT or PE. - Related Data Home Medications Medication Instructions Recorded Confirmed Khz-Yaaj-Gqzik Acid 1 cap PO DAILY 08/29/21 01/20/22 [-U Capsule (formulary)] Albuterol Sulfate [Albuterol 2 puff PO RT-Q6H PRN 01/20/22 01/20/22 Sulfate Hfa] Previous Rx's Medication Instructions Recorded Acetaminophen [Tylenol] 500 mg PO Q4-6H PRN #24 tab 01/15/22 predniSONE 50 mg PO DAILY #5 tab 01/15/22 Amoxicillin/Potassium Clav 1 tab PO Q12HR #20 tab 01/20/22 [Augmentin 875-125 Tablet] Allergies Allergy/AdvReac Type Severity Reaction Status Date / Time No Known Allergies Allergy Verified 01/20/22 14:55 Review of Systems ROS Statement: Those systems with pertinent positive or pertinent negative responses have been documented in the HPI. ROS Other: All systems not noted in ROS Statement are negative. Past Medical History Additional Past Medical History / Comment(s): Positive HSV Type 2, hx frequent UTI/kidney infection History of Any Multi-Drug Resistant Organisms: None Reported, MRSA Date of last positivie culture/infection: 08/05/20 MDRO Source:: Nose Past Surgical History: Ear Surgery Additional Past Surgical History / Comment(s): Tubes in ears, I/D of abscess behind left ear, 6 teeth recently extracted Past Anesthesia/Blood Transfusion Reactions: No Reported Reaction Past Psychological History: Depression Smoking Status: Current some day smoker Past Alcohol Use History: None Reported Past Drug Use History: None Reported - Past Family History Mother Family Medical History: Cancer, Hypertension General Exam Limitations: no limitations General appearance: alert, in no apparent distress Head exam: Present: atraumatic, normocephalic, normal inspection Eye exam: Present: normal appearance, PERRL, EOMI. Absent: scleral icterus, conjunctival injection, periorbital swelling ENT exam: Present: normal exam, normal oropharynx, mucous membranes moist Neck exam: Present: normal inspection. Absent: tenderness, meningismus, lymphadenopathy Respiratory exam: Present: wheezes. Absent: normal lung sounds bilaterally, respiratory distress, rales, rhonchi, stridor Cardiovascular Exam: Present: normal rhythm, tachycardia, normal heart sounds. Absent: systolic murmur, diastolic murmur, rubs, gallop, clicks GI/Abdominal exam: Present: soft, normal bowel sounds. Absent: distended, tenderness, guarding, rebound, rigid Back exam: Absent: CVA tenderness (R), CVA tenderness (L) Neurological exam: Present: alert Skin exam: Present: warm, dry, intact, normal color. Absent: rash Course Vital Signs 01/20/22 01/20/22 12:04 13:35 Temperature 98.7 F 97.9 F Pulse Rate 122 H 105 H Respiratory 22 14 Rate Blood Pressure 111/71 115/75 O2 Sat by Pulse 95 96 Oximetry Chest Pain MDM - MDM 31-year-old female presents for cough and congestion. Patient is currently . Patient had full workup which is including negative d-dimer, troponin, x-ray has no acute changes from prior. Patient does have notable cough, wheezing. Patient treated for acute bronchitis and evidence of urinary tract infection. Return parameters discussed. Disposition Clinical Impression: UTI (urinary tract infection), Acute bronchitis Disposition: HOME SELF-CARE Condition: Stable Instructions (If sedation given, give patient instructions): Urinary Tract Infection in Women (ED) Additional Instructions: Please To the Emergency Department for any worsening symptoms or any other concerns. Prescriptions: Amoxicillin/Potassium Clav [Augmentin 875-125 Tablet] 1 tab PO Q12HR #20 tab Is patient prescribed a controlled substance at d/c from ED?: No Referrals: None,Stated [Primary Care Provider] - 1-2 days Time of Disposition: 16:05
[2022-01-20 14:56] LABS: Basophils % (A) 0 %; Eosinophils # (A) 0.2 k/uL (0-0.7); Eosinophils % (A) 1 %; HCT 37.6 % (34.0-46.0); HGB 12.8 gm/dL (11.4-16.0); Lymphocytes # (A) 0.6 k/uL (1.0-4.8); Lymphocytes % (A) 3 %; MCH 30.6 pg (25.0-35.0); MCHC 34.1 g/dL (31.0-37.0); MCV 89.7 fL (80.0-100.0); Mean Platelet Volume 11.4; Monocytes # (A) 0.7 k/uL (0-1.0); Monocytes % (A) 4 %; Neutrophils # (A) 16.3 k/uL (1.3-7.7); Neutrophils % (A) 91 %; Platelet Count 131 k/uL (150-450); RBC 4.19 m/uL (3.80-5.40); RDW 12.7 % (11.5-15.5); WBC 17.8 k/uL (3.8-10.6)
[2022-01-20 15:08] LABS: ALT 67 U/L (4-34); African American GFR (CKD) >90 (>60 ml/min/1.73 sqM); Anion Gap 8 mmol/L; Blood Urea Nitrogen 9 mg/dL (7-17); Calcium 8.3 mg/dL (8.4-10.2); Carbon Dioxide 21 mmol/L (22-30); Chloride 104 mmol/L (98-107); Glucose 150 mg/dL (74-99); Non-African American GFR(CKD) >90 (>60 ml/min/1.73 sqM); Sodium 133 mmol/L (137-145)
[2022-01-20 15:10] LABS: Albumin 3.5 g/dL (3.5-5.0); Total Protein 6.9 g/dL (6.3-8.2)
[2022-01-20 15:11] LABS: AST 73 U/L (14-36); Alkaline Phosphatase 122 U/L (38-126); Total Bilirubin 1.3 mg/dL (0.2-1.3)
[2022-01-20 15:49] LABS: ALT 64 U/L (4-34); AST 48 U/L (14-36); African American GFR (CKD) >90 (>60 ml/min/1.73 sqM); Albumin 3.4 g/dL (3.5-5.0); Alkaline Phosphatase 143 U/L (38-126); Anion Gap 11 mmol/L; Blood Urea Nitrogen 7 mg/dL (7-17); Calcium 8.4 mg/dL (8.4-10.2); Carbon Dioxide 20 mmol/L (22-30); Chloride 103 mmol/L (98-107); Glucose 162 mg/dL (74-99); Non-African American GFR(CKD) >90 (>60 ml/min/1.73 sqM); Potassium 3.5 mmol/L (3.5-5.1); Sodium 134 mmol/L (137-145); Total Protein 6.6 g/dL (6.3-8.2)
[2022-01-20 15:55] LABS: Appearance,Urine Cloudy (Clear); Bacteria,Urine Occasional /hpf; Bilirubin,Urine Negative (Negative); Blood,Urine Negative (Negative); Color,Urine Yellow; Glucose,Urine (UA) 3+ (Negative); Ketones,Urine Trace (Negative); Leukocyte Esterase,Urine Small (Negative); Mucus,Urine Moderate /hpf; Nitrite,Urine Negative (Negative); Protein,Urine Trace (Negative); RBC,Urine 2 /hpf (0-5); Specific Gravity,Urine 1.022 (1.001-1.035); Squamous Epithelial Cell,Urine 2 /hpf (0-4); WBC,Urine 40 /hpf (0-5)
[2022-01-20 16:14] VITALS: BP 124/78; PULSE 96
== END 2022-01-20 16:26 | disposition home or self-care (01) ==
LOC: EC 11:55
DX: O23.43 Unspecified infection of urinary tract in pregnancy, third trimester (principal); O99.513 Diseases of the respiratory system complicating pregnancy, third trimester; O99.333 Smoking (tobacco) complicating pregnancy, third trimester; J20.9 Acute bronchitis, unspecified; F17.200 Nicotine dependence, unspecified, uncomplicated; Z3A.30 30 weeks gestation of pregnancy
CPT/HCPCS: 36415; 71046; 80053; 81001; 83880; 84484; 85025; 85379; 87086; 87502; 93005; 99285

== ENCOUNTER 2022-08-26 05:40 | Emergency (ER) | payer OTHER ==
[2022-08-26 05:50] VITALS: BP 115/71; PULSE 107; RESP 20; TEMP 98.8
[2022-08-26] MEDS ORDERED: KETOROLAC 15 MG/ML 1 ML VIAL IVP STA (07:04)
--- NOTE | 2022-08-26 07:06 | ED ---
Fever HPI - General Chief Complaint: Fever Stated Complaint: Vomiting, Fever Time Seen by Provider: 08/26/22 06:53 Source: patient, RN notes reviewed Mode of arrival: ambulatory Limitations: no limitations - History of Present Illness Initial Comments: This a 32-year-old female presents emergency from chief complaint of fever cough congestion body aches. Patient states that her boyfriend is positive for COVID- 19. Patient states that symptoms started last few days. Patient complains of bodyaches, mild nasal congestion no chest painor shortness of breath. Patient has not taken any rgol-pox-cdqnlwu cough and cold medications. - Related Data Home Medications Medication Instructions Recorded Confirmed Uyc-Saxp-Xetzf Acid 1 cap PO DAILY 08/29/21 01/20/22 [-U Capsule (formulary)] Albuterol Sulfate [Albuterol 2 puff PO RT-Q6H PRN 01/20/22 01/20/22 Sulfate Hfa] Previous Rx's Medication Instructions Recorded Acetaminophen [Tylenol] 500 mg PO Q4-6H PRN #24 tab 01/15/22 predniSONE 50 mg PO DAILY #5 tab 01/15/22 Amoxicillin/Potassium Clav 1 tab PO Q12HR #20 tab 01/20/22 [Augmentin 875-125 Tablet] Allergies Allergy/AdvReac Type Severity Reaction Status Date / Time No Known Allergies Allergy Verified 08/26/22 05:50 Review of Systems ROS Statement: Those systems with pertinent positive or pertinent negative responses have been documented in the HPI. ROS Other: All systems not noted in ROS Statement are negative. Past Medical History Additional Past Medical History / Comment(s): Positive HSV Type 2, hx frequent UTI/kidney infection History of Any Multi-Drug Resistant Organisms: None Reported, MRSA Date of last positivie culture/infection: 08/05/20 MDRO Source:: Nose Past Surgical History: Ear Surgery Additional Past Surgical History / Comment(s): Tubes in ears, I/D of abscess behind left ear, 6 teeth recently extracted Past Anesthesia/Blood Transfusion Reactions: No Reported Reaction Past Psychological History: Depression Smoking Status: Current every day smoker Past Alcohol Use History: None Reported Past Drug Use History: None Reported - Past Family History Mother Family Medical History: Cancer, Hypertension General Exam Limitations: no limitations General appearance: alert, in no apparent distress Head exam: Present: atraumatic, normocephalic, normal inspection Eye exam: Present: normal appearance, PERRL, EOMI. Absent: scleral icterus, conjunctival injection, periorbital swelling ENT exam: Present: normal exam, normal oropharynx, mucous membranes moist Neck exam: Present: normal inspection, full ROM. Absent: tenderness, meningismus, lymphadenopathy Respiratory exam: Present: normal lung sounds bilaterally. Absent: respiratory distress, wheezes, rales, rhonchi, stridor Cardiovascular Exam: Present: normal rhythm, tachycardia, normal heart sounds. Absent: systolic murmur, diastolic murmur, rubs, gallop, clicks Course Vital Signs 08/26/22 05:46 Temperature 98.8 F Pulse Rate 107 H Respiratory 20 Rate Blood Pressure 115/71 O2 Sat by Pulse 97 Oximetry Medical Decision Making - Medical Decision Making Patient is COVID-19 positive. Patient has no signs of distress. Vital signs stable patient requested Toradol. Patient will be discharged in stable condition return parameters were discussed. - Lab Data Lab Results 08/26/22 Range/Units 05:52 Coronavirus (PCR) Detected A (Not Detectd) Disposition Clinical Impression: COVID-19 Disposition: HOME SELF-CARE Condition: Stable Instructions (If sedation given, give patient instructions): COVID-19 (Coronavirus Disease 2019) (ED) Additional Instructions: Please return to the Emergency Department if symptoms worsen or any other concerns. Is patient prescribed a controlled substance at d/c from ED?: No Referrals: None,Stated [Primary Care Provider] - 1-2 days Time of Disposition: 07:05
== END 2022-08-26 07:19 | disposition home or self-care (01) ==
LOC: EC 05:40
DX: U07.1 COVID-19 (principal); F32.A Depression, unspecified; F17.200 Nicotine dependence, unspecified, uncomplicated; Z20.822 Contact with and (suspected) exposure to COVID-19; Z79.899 Other long term (current) drug therapy; Z87.898 Personal history of other specified conditions; Z87.440 Personal history of urinary (tract) infections
CPT/HCPCS: 87635; 99283; 96374; J1885

== ENCOUNTER → 2025-02-27 | Outpatient (CLI) | payer OTHER | END | disposition home or self-care (01) | LOC: LABWHC1 09:34 | PROVIDERS: ATTEND Preventive Medicine Occupational Medicine | DX: Z13.88 Encounter for screening for disorder due to exposure to contaminants (principal) | CPT/HCPCS: 36415; 83655 ==